=== PATIENT | female | born 2000 | race Caucasian/White ===

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

== ENCOUNTER → 2022-02-27 15:43 | Outpatient (CLI) | payer OTHER, SELFPAY ==
--- NOTE | 2022-02-27 15:49 | XR_ITS ---
FINAL REPORT CLINICAL HISTORY: COUGH, congestion since last friday. very hoarse sounding. Double shielded. FINDINGS: Two views of the chest were obtained. The heart size and pulmonary vascularity are within normal limits. The mediastinum is normal. No acute pulmonary abnormality is identified. There is no pneumothorax. The bony thorax is intact. IMPRESSION: No active cardiopulmonary disease. Reviewed, Interpreted and Dictated by Jeanmarie Abad III, MD Transcribed by Becca Junior Authenticated and [facility]
== END ==
PROVIDERS: PCP Family Medicine; Visit Provider Family Medicine
DX: R05.1 Acute cough (principal)
CPT/HCPCS: 71046

== ENCOUNTER → 2022-03-22 11:13 | Outpatient (CLI) | payer OTHER, SELFPAY ==
[2022-03-22 12:02] LABS: Basophils # 0.1 K/mm3 (0-0.2); Eosinophils # 0.1 K/mm3 (0.0-0.4); Eosinophils % 1.6 % (0.1-12.0); Hematocrit 35.6 % (37.0-47.0); Hemoglobin 13.1 g/dL (12.2-16.2); Lymphocytes # 1.7 K/mm3 (0.7-4.5); Lymphocytes % 27.9 % (10-50); Mean Corpuscular HGB Conc 36.7 g/dL (31.8-35.4); Mean Corpuscular Hemoglobin 32.4 pg (27.0-31.2); Mean Corpuscular Volume 88.2 fl (81-99); Mean Platelet Volume 7.2 fl (7.4-10.4); Monocytes # 0.3 K/mm3 (0.1-1.0); Monocytes % 4.5 % (1.7-9.3); Platelet Count 235 K/mm3 (142-424); Red Blood Count 4.04 M/mm3 (4.20-5.40); Red Cell Distribution Width 13.8 % (11.5-17.5); White Blood Count 6.1 K/mm3 (4.5-13.0)
[2022-03-22 12:28] LABS: Alanine Aminotransferase 13 U/L (12-78); Albumin Level 4.4 g/dl (3.5-5.0); Albumin/Globulin Ratio 1.9 (1.1-1.8); Alkaline Phosphatase 42 U/L (38-126); Amylase 51 U/L (30-110); Aspartate Amino Transferase 18 U/L (14-36); Bilirubin,Total 0.7 mg/dl (0.2-1.3); Blood Urea Nitrogen 8 mg/dl (7-17); Calcium 9.2 mg/dl (8.4-10.2); Carbon Dioxide 22 mmol/L (22.0-30.0); Chloride 111 mmol/L (98-107); Estimated Glomerular Filt Rate 129 ml/min (>60); GFR (African American) 156 ML/MIN (>60); Globulin 2.3 g/dL (1.3-3.2); Glucose 84 mg/dl (74-100); Lipase 40 U/L (23-300); Sodium 141 mmol/L (136-145); Total Protein,Serum 6.7 g/dl (6.3-8.2)
[2022-03-22 12:33] LABS: Anion Gap 11.8 mEq/L (5-15); Potassium 3.8 mmoL/L (3.5-5.1)
[2022-03-22 12:42] LABS: HCG,Quantitative < 2 mIU/ml (0-5.42)
== END ==
PROVIDERS: PCP Nurse Practitioner Family; Visit Provider Nurse Practitioner Family
DX: R42 Dizziness and giddiness (principal); R11.2 Nausea with vomiting, unspecified; R10.30 Lower abdominal pain, unspecified
CPT/HCPCS: 36415; 80053; 82150; 83690; 84443; 84702; 85025

== ENCOUNTER 2022-04-07 17:13 | Emergency (ER) | payer OTHER, SELFPAY ==
[2022-04-07] VITALS (7 sets, daily range): BP systolic 118–143; BP diastolic 79–91; PULSE 56–80; RESP 16; TEMP 36.7–36.8; O2SAT 97–100; BMI 26.2
--- NOTE | 2022-04-07 17:45 | CT_ITS ---
PROCEDURE INFORMATION: Exam: CT Abdomen And Pelvis With Contrast Exam date and time: 04/07/2022 6:13 PM Age: 21 years old Clinical indication: Abdominal pain; Additional info: Right side abd pain TECHNIQUE: Imaging protocol: Computed tomography of the abdomen and pelvis with contrast. Radiation optimization: All CT scans at this facility use at least one of these dose optimization techniques: automated exposure control; mA and/or kV adjustment per patient size (includes targeted exams where dose is matched to clinical indication); or iterative reconstruction. Contrast material: ISOVUE; Contrast volume: 75 ml; Contrast route: IV; Other protocol: This patient has received 0 known CTs and 0 known cardiac nuclear medicine studies in the 12 months prior to the current study. COMPARISON: CR XR CHEST 2V 02/27/2022 3:55 PM FINDINGS: Lungs: Lung bases are unremarkable. Liver: No focal hepatic lesions. Gallbladder and bile ducts: Gallbladder is distended without radiopaque cholelithiasis. No biliary ductal dilation. Pancreas: No peripancreatic fluid stranding. No main pancreatic ductal dilation. Spleen: No splenomegaly. Adrenal glands: The adrenal glands are normal. Kidneys and ureters: Nephrograms are symmetric. No nephrolithiasis or hydroureteronephrosis on either side. No solid lesions Stomach and bowel: No abnormal bowel dilatation. No abnormal bowel wall thickening. Appendix: A normal appendix is identified. Intraperitoneal space: There is no evidence of free intraperitoneal or pelvic fluid. Vasculature: Aorta is nonaneurysmal. Lymph nodes: No evidence of retroperitoneal or mesenteric lymphadenopathy. Urinary bladder: Urinary bladder is unremarkable. Reproductive: Unremarkable as visualized. Bones/joints: No acute osseous abnormality. Soft tissues: Unremarkable. IMPRESSION: No acute abnormality in the abdomen or pelvis
[2022-04-07 17:52] LABS: Microscopic, Urine URINE MICROSCOPIC (MICROSCOPIC)
[2022-04-07 17:55] LABS: Appearance,Urine CLEAR (Clear); Bilirubin,Urine Negative (Negative); Blood, Urine Negative (Negative); Color,Urine YELLOW (Yellow); Glucose,Urine (UA) Negative (Negative); Ketones,Urine Negative (Negative); Leukocyte Esterase,Urine Negative (Negative); Nitrate,Urine Negative (Negative); Protein,Urine Negative (Negative); Specific Gravity, Urine <= 1.005 (1.005-1.030); Urobilinogen,Urine 0.2 EU/dl (0.2)
[2022-04-07 17:57] LABS: Urine Pregnancy, HCG Qual. Negative (Negative)
--- NOTE | 2022-04-07 17:58 | PC.NURSE ---
rounded on pt at this time. no needs voiced
[2022-04-07 17:59] LABS: Chloride 111 mmol/L (98-107)
[2022-04-07 18:00] LABS: Sodium 144 mmol/L (136-145)
[2022-04-07 18:02] LABS: Alanine Aminotransferase 16 U/L (12-78); Albumin Level 4.5 g/dl (3.5-5.0); Albumin/Globulin Ratio 1.7 (1.1-1.8); Alkaline Phosphatase 43 U/L (38-126); Aspartate Amino Transferase 23 U/L (14-36); Bilirubin,Total 0.7 mg/dl (0.2-1.3); Blood Urea Nitrogen 5 mg/dl (7-17); Carbon Dioxide 26 mmol/L (22.0-30.0); Creatinine Clearance Estimated 154 mL/min (50-200); Estimated Glomerular Filt Rate 129 ml/min (>60); GFR (African American) 156 ML/MIN (>60); Globulin 2.7 g/dL (1.3-3.2); Total Protein,Serum 7.2 g/dl (6.3-8.2)
[2022-04-07 18:03] LABS: Calcium 9.4 mg/dl (8.4-10.2); Glucose 101 mg/dl (74-100)
[2022-04-07 18:06] LABS: Squamous Epithelial Cell,Urine Occasional #/hpf (0-5)
[2022-04-07 18:06] LABS: Basophils # 0.1 K/mm3 (0-0.2); Basophils % 1.9 % (0.1-2.0); Eosinophils # 0.2 K/mm3 (0.0-0.4); Eosinophils % 2.8 % (0.1-12.0); Lymphocytes # 2.3 K/mm3 (0.7-4.5); Lymphocytes % 38.1 % (10-50); Mean Corpuscular HGB Conc 33.2 g/dL (31.8-35.4); Mean Corpuscular Hemoglobin 30.1 pg (27.0-31.2); Mean Corpuscular Volume 90.8 fl (81-99); Mean Platelet Volume 7.5 fl (7.4-10.4); Monocytes # 0.3 K/mm3 (0.1-1.0); Monocytes % 5.8 % (1.7-9.3); Neutrophils # 3.1 K/mm3 (1.8-7.8); Neutrophils % 51.5 % (37.0-80.0); Platelet Count 276 K/mm3 (142-424); Red Blood Count 4.63 M/mm3 (4.20-5.40); Red Cell Distribution Width 13.6 % (11.5-17.5); White Blood Count 5.9 K/mm3 (4.5-13.0)
--- NOTE | 2022-04-07 18:12 | PC.NURSE ---
ROUNDED ON PT STATES NO COMPLAINT AT THIS TIME
--- NOTE | 2022-04-07 18:50 | PC.NURSE ---
er at bedside
--- NOTE | 2022-04-07 19:20 | HMH.EDGENADL ---
Discharge Plan Disposition Patient Disposition: Home, Self-Care Condition: Good Prescriptions Prescriptions: New sucralfate [Carafate] 1 gram tablet 1 g PO TID 28 Days Qty: 84 0RF famotidine 20 mg tablet 20 mg PO DAILY Qty: 30 0RF ondansetron 4 mg tablet,disintegrating 4 mg PO TID PRN (Reason: nausea and vomiting) 4 Days Qty: 12 0RF No Action prednisone 5 MG tablets,dose pack 5 mg PO UD DOSE PK Qty: 21 0RF Referrals Follow up/Referrals: Sayra Winters APRN [Primary Care Provider] - See instructions Clinical Impressions Clinical Impression: Gastritis, Nausea & vomiting Instructions Patient Instructions: DI for Acute Abdominal Pain Print Language Print Language: Latvian Discharge ED Provider: Sanjay Gandhi General Adult HPI General Chief complaint: Abdominal Pain Stated complaint: abd pain, vomiting Time Seen by Provider: 04/07/22 19:32 Mode of Arrival: Ambulatory Source of Information: Patient and Parent(s) Limitations: No Limitations Description of Symptoms (Recalled from ER Triage Doc. by RN): pt comes in with c/o right sided pain from flank to groin ongoing for 1 week. pt reports inability to keep food down for 1 week. nausea, no diarrhea associated. pt had recent visit and bloodwork at pcp office and nothing was seen per mother. History of Present Illness HPI narrative: Patient presents to the emergency department with generalized abdominal pain, nausea, vomiting and decreased p.o. intake for the last week. The patient states that she has had no significant constipation or diarrhea. Denies any fever, chills, cough or congestion. Patient denies any dysuria, hematuria or frequency. Denies anything that makes it better or worse Related Data Previous Rx's Medication Instructions Recorded prednisone 5 mg tablets in a dose 5 mg PO UD DOSE PK ##21 12/01/18 pack famotidine 20 mg tablet 20 mg PO DAILY #30 tabs 04/07/22 ondansetron 4 mg disintegrating 4 mg PO TID PRN nausea and 04/07/22 tablet vomiting 4 days #12 tabs sucralfate 1 gram tablet (Carafate) 1 g PO TID 4 weeks #84 tabs 04/07/22 Allergies Allergy/AdvReac Type Severity Reaction Status Date / Time No Known Allergies Allergy Verified 12/01/18 14:46 [facility] Disclaimer: The information contained in this section may have been updated after the patient was seen, as this information can be updated by other users. Social History Smoking Status: Never smoker alcohol intake: never current occupational status: student Travel in the last 8 weeks: None ROS Obtained: Yes All systems reviewed & no additional complaints except as documented Gastrointestinal Gastrointestingal: Reports system reviewed and no additional complaints, except as documented and vomiting Physical Exam General General appearance: alert and in no apparent distress Head Head exam: atraumatic and normocephalic Eye Eye exam: Present normal appearance, PERRL and EOMI Respiratory Respiratory exam: Present normal lung sounds bilaterally Cardiovascular Cardiovascular exam: Present regular rate, normal rhythm and normal heart sounds Abdominal Exam Abdominal exam: Present soft Comment: Nondistended, mild generalized abdominal tenderness with guarding. No rebound. Hyperactive bowel sounds. Neurological Exam Neurological exam: Present alert, oriented X3 and CN II-XII intact Psychiatric Psychiatric exam: Present normal affect and normal mood Skin Skin exam: Present warm, dry and intact Medical Decision Making Medical Records Medical records reviewed: Yes I reviewed the patient's medical records. Miguel Inquiry Pt receiving controlled substance: No Miguel was queried for this patient: No Vital Signs: 04/07/22 17:38 04/07/22 17:28 04/07/22 17:30 Temperature 98.2 F Temperature Source Oral Pulse Rate 56 L 60 Pulse Rate [Left] 62 Respiratory Rate 16 Blood Pressur
== END 2022-04-07 20:02 | disposition home or self-care (01) ==
PROVIDERS: Emergency Provider Emergency Medicine; PCP Nurse Practitioner Family
DX: K52.9 Noninfective gastroenteritis and colitis, unspecified (principal)
CPT/HCPCS: 74177; 80053; 81001; 81025; 85025; 96361; 96374; 96375; 99285; J2405; Q9967

== ENCOUNTER → 2022-04-22 07:46 | Outpatient (CLI) | payer OTHER, SELFPAY ==
--- NOTE | 2022-04-22 07:50 | US_ITS ---
FINAL REPORT CLINICAL HISTORY: N/V,RT SIDED ABD PAIN FINDINGS: Sonographic images of the abdomen were obtained. The liver has an unremarkable appearance with normal echogenicity. The gallbladder has an unremarkable appearance without evidence of gallstones. There is no evidence of biliary ductal dilatation. The common hepatic duct measures 2 mm, which is within normal limits. The pancreas is partially obscured. The spleen size is normal. The right kidney measures 10.7 cm in length. The left kidney measures 11.5 cm in length. There is normal renal echogenicity. There is no evidence of hydronephrosis. The aorta has an unremarkable appearance. Limited images of the inferior vena cava are unremarkable. IMPRESSION: Unremarkable abdominal ultrasound with no acute abnormality identified. Reviewed, Interpreted and Dictated by Jeanmarie Abad III, MD Transcribed by Coby Glass Authenticated and [facility]
== END ==
PROVIDERS: PCP Nurse Practitioner Family; Visit Provider Nurse Practitioner Family
DX: R10.9 Unspecified abdominal pain (principal); R11.2 Nausea with vomiting, unspecified
CPT/HCPCS: 76700

== ENCOUNTER → 2022-04-26 10:11 | Outpatient (CLI) | payer OTHER, SELFPAY ==
--- NOTE | 2022-04-26 10:14 | NM_ITS ---
FINAL REPORT CLINICAL HISTORY: N/V,RT SIDED ABD PAIN no stones on u/s FINDINGS: Sequential anterior projection images of the abdomen were obtained after the intravenous injection of 7.83 mCi technetium 99m Choletec. There is normal uptake of radiotracer by the liver. The bile ducts are visualized by 10 minutes. Gallbladder activity is seen by 10 minutes. Bowel activity is noted by 15 minutes. After 1 hour, 1.3 ?g of CCK was injected intravenously for calculation of gallbladder ejection fraction. The gallbladder ejection fraction is 81 %, which is within normal limits. IMPRESSION: No evidence of cystic duct or bile duct obstruction. Normal gallbladder ejection fraction of 50%. Reviewed, Interpreted and Dictated by Jeanmarie Abad III, MD Transcribed by Janette Roper Authenticated and . [facility]
[2022-04-26 11:06] LABS: Urine Pregnancy, HCG Qual. Negative (Negative)
== END ==
PROVIDERS: Physician Assistant; PCP Nurse Practitioner Family; Visit Provider Nurse Practitioner Family
DX: R10.9 Unspecified abdominal pain (principal); R11.2 Nausea with vomiting, unspecified
CPT/HCPCS: 78227; 81025; A9537; J2805

== ENCOUNTER 2022-10-24 23:21 | Emergency (ER) | payer OTHER, SELFPAY ==
[2022-10-24 23:23] VITALS: BP 131/70; PULSE 120; RESP 20; TEMP 36.6; O2SAT 99; BMI 26.5
[2022-10-25] VITALS (8 sets, daily range): BP systolic 106–138; BP diastolic 56–82; PULSE 90–126; RESP 16–20; TEMP 36.5; O2SAT 96–98
--- NOTE | 2022-10-25 | CT_ITS ---
PROCEDURE INFORMATION: Exam: CTA Head With Contrast, Venography Exam date and time: 10/25/2022 3:02 AM Age: 22 years old Clinical indication: Pain; Patient HX: C/O prolonged headache, nausea, dizziness TECHNIQUE: Imaging protocol: Computed tomography angiography of the head with contrast. Exam focused on the veins. 3D rendering (Not supervised by radiologist): MIP and/or 3D reconstructed images were created by the technologist. Radiation optimization: All CT scans at this facility use at least one of these dose optimization techniques: automated exposure control; mA and/or kV adjustment per patient size (includes targeted exams where dose is matched to clinical indication); or iterative reconstruction. Contrast material: ISOVUE; Contrast volume: 100 ml; Contrast route: INTRAVENOUS (IV); REPORTING DATA: Count of CT and Cardiac NM exams in prior 12 months: This patient has received [address] and 0 known cardiac nuclear medicine studies in the 12 months prior to the current study. COMPARISON: CT HEAD/BRAIN WO CON 10/25/2022 2:59 AM FINDINGS: Superior sagittal sinus: Patent. Straight sinus: Patent. Transverse sinuses: Patent. Sigmoid sinuses: Patent. Internal jugular veins: Limited visualized internal jugular veins are patent. Brain: No hemorrhage. Unremarkable white matter. No mass effect. Cerebral ventricles: No ventriculomegaly. Soft tissues: Unremarkable. IMPRESSION: No venous thrombosis.
--- NOTE | 2022-10-25 | XR_ITS ---
PROCEDURE INFORMATION: Exam: XR Chest Exam date and time: 10/25/2022 3:00 AM Age: 22 years old Clinical indication: Sternal or substernal pain; Additional info: Chest pain TECHNIQUE: Imaging protocol: Radiologic exam of the chest. Views: 1 view. COMPARISON: CR XR CHEST 2V 02/27/2022 3:55 PM FINDINGS: Lungs: Unremarkable. No consolidation. Pleural spaces: Unremarkable. No pleural effusion. No pneumothorax. Heart/Mediastinum: Unremarkable. No cardiomegaly. Bones/joints: Unremarkable. IMPRESSION: No acute cardiopulmonary process.
--- NOTE | 2022-10-25 | CT_ITS ---
PROCEDURE INFORMATION: Exam: CT Head Without Contrast Exam date and time: 10/25/2022 2:59 AM Age: 22 years old Clinical indication: Pain; Dizziness; Headache; Additional info: Prolonged headache TECHNIQUE: Imaging protocol: Computed tomography of the head without contrast. Radiation optimization: All CT scans at this facility use at least one of these dose optimization techniques: automated exposure control; mA and/or kV adjustment per patient size (includes targeted exams where dose is matched to clinical indication); or iterative reconstruction. REPORTING DATA: Count of CT and Cardiac NM exams in prior 12 months: This patient has received [address] and 0 known cardiac nuclear medicine studies in the 12 months prior to the current study. COMPARISON: No relevant prior studies available. FINDINGS: Brain: Normal. No hemorrhage. Unremarkable white matter. No mass effect. Cerebral ventricles: No ventriculomegaly. Paranasal sinuses: Visualized sinuses are unremarkable. No fluid levels. Mastoid air cells: Visualized mastoid air cells are well aerated. Bones/joints: Unremarkable. No acute fracture. Soft tissues: Unremarkable. IMPRESSION: No acute intracranial process.
[2022-10-25 00:08] LABS: Basophils % 0.2 % (0.1-2.0); Eosinophils # 0.1 K/mm3 (0.0-0.4); Eosinophils % 0.6 % (0.1-12.0); Hematocrit 41.6 % (37.0-47.0); Hemoglobin 13.9 g/dL (12.2-16.2); Lymphocytes # 1.2 K/mm3 (0.7-4.5); Lymphocytes % 7.4 % (10-50); Mean Corpuscular HGB Conc 33.5 g/dL (31.8-35.4); Mean Corpuscular Volume 89.8 fl (81-99); Mean Platelet Volume 6.9 fl (7.4-10.4); Monocytes # 0.8 K/mm3 (0.1-1.0); Neutrophils # 14.2 K/mm3 (1.8-7.8); Neutrophils % 86.8 % (37.0-80.0); Platelet Count 243 K/mm3 (142-424); Red Blood Count 4.63 M/mm3 (4.20-5.40); Red Cell Distribution Width 13.1 % (11.5-17.5); White Blood Count 16.4 K/mm3 (4.5-13.0)
[2022-10-25 00:10] LABS: Chloride 106 mmol/L (98-107); Potassium 3.8 mmoL/L (3.5-5.1); Sodium 143 mmol/L (136-145)
[2022-10-25 00:12] LABS: Alanine Aminotransferase 23 U/L (12-78); Alkaline Phosphatase 66 U/L (38-126); Aspartate Amino Transferase 28 U/L (14-36); Bilirubin,Total 0.7 mg/dl (0.2-1.3); Blood Urea Nitrogen 8 mg/dl (7-17); Creatinine Clearance Estimated 138 mL/min (50-200); Estimated Glomerular Filt Rate 107 ml/min (>60); GFR (African American) 129 ML/MIN (>60); MANUAL DIFFERENTIAL MANUAL DIFFERENTIAL (MANUAL DIFF)
[2022-10-25 00:13] LABS: Albumin Level 4.4 g/dl (3.5-5.0); Albumin/Globulin Ratio 1.5 (1.1-1.8); Anion Gap 13.8 mEq/L (5-15); Carbon Dioxide 27 mmol/L (22.0-30.0); Glucose 99 mg/dl (74-100); Lipase 46 U/L (23-300); Total Protein,Serum 7.4 g/dl (6.3-8.2)
[2022-10-25 00:18] LABS: Microscopic, Urine URINE MICROSCOPIC (MICROSCOPIC)
[2022-10-25 00:21] LABS: Appearance,Urine CLEAR (Clear); Bilirubin,Urine Negative (Negative); Blood, Urine Negative (Negative); Color,Urine YELLOW (Yellow); Glucose,Urine (UA) Negative (Negative); Ketones,Urine Negative (Negative); Leukocyte Esterase,Urine Negative (Negative); Nitrate,Urine Negative (Negative); PH,Urine 7.5 (5.0-8.5); Protein,Urine Negative (Negative); Urobilinogen,Urine 0.2 EU/dl (0.2)
--- NOTE | 2022-10-25 00:21 | HMH.EDGENADL ---
Discharge Plan Disposition Patient Disposition: Home, Self-Care Condition: Good Prescriptions Prescriptions: No Action No Known Home Medications Referrals Follow up/Referrals: Provider,Referral, [Primary Care Provider] - See instructions Activity Restrictions/Add. Instructions Additional Instructions/Restrictions: Please follow-up with your primary care provider. Please return to the emergency department if you develop any new or worsening symptoms or become concerned for your health. Clinical Impressions Clinical Impression: Nausea Headache Qualifiers: Headache type: unspecified Headache chronicity pattern: acute headache Intractability: intractable Qualified Code(s): R51.9 - Headache, unspecified Chest pain Qualifiers: Chest pain type: unspecified Qualified Code(s): R07.9 - Chest pain, unspecified Stand Alone Forms Stand Alone Forms: Work/School Release Discharge ED Provider: Alvarado Long Adult HPI General Chief complaint: Headache Stated complaint: headache, neck pain, dizziness Time Seen by Provider: 10/24/22 23:25 Mode of Arrival: Ambulatory Source of Information: Patient Limitations: No Limitations Description of Symptoms (Recalled from ER Triage Doc. by RN): Pt presents with a headache she has had for 1 week, associated with nausea, dizziness, fatigue, sore throat and right eye visual changes worse when waking up. History of Present Illness HPI narrative: 22-year-old female history of chronic headaches presents with multiple complaints. She reports that she has had a headache starting last Friday, approximately 1 week in duration. Normally her headaches do not last this long and usually respond to ibuprofen or Tylenol. She reports her headache is at worst a 7 or 8, is currently a 4. It is never gone away completely. It is largely posterior in nature. She reports intermittent vision changes. Earlier today under around 6 PM she noted some blurry vision in her right eye. Then she had blurry vision in both eyes. It has since improved. She reports no tinnitus. She has been continuing to go to school. She has had no weakness dizziness or difficulty ambulation. She reports that she gets nauseous with moving around she reports chest pain starting earlier today as well as back pain and neck pain. She reports fatigue and sore throat as well. She reports that she has had intermittent fever for the last few days. Related Data Home Medications Medication Instructions Recorded Confirmed No Known Home Medications 10/25/22 10/25/22 Allergies Allergy/AdvReac Type Severity Reaction Status Date / Time No Known Allergies Allergy Verified 09/25/22 09:28 [facility] Disclaimer: The information contained in this section may have been updated after the patient was seen, as this information can be updated by other users. 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 (Updated 10/25/22 @ 04:08 by Alvarado Long MD) Chronic streptococcal tonsillitis Epistaxis Social History Smoking Status: Never smoker alcohol intake: never current occupational status: student Travel in the last 8 weeks: None ROS Obtained: Yes All systems reviewed & no additional complaints except as documented Physical Exam General General appearance: alert and anxious Head Head exam: atraumatic and normocephalic Eye Eye exam: Present normal appearance, PERRL and EOMI; Absent jaundice, conjunctival injection or nystagmus ENT ENT exam: Present normal external ear exam and other (Mild posterior oropharyngeal erythema without tonsillar swelling) Neck Neck exam: Present normal inspection, full ROM and other (Mild paraspinal tenderness to palpation); Absent meningismus Chest Chest inspection: Present normal inspection and symmetric chest wall rise; Absent tenderness Respiratory Respiratory exam: Present normal lung sounds bilaterally; Absent respiratory distress or wheeze
[2022-10-25 00:22] LABS: HCG Qualitative, Serum Negative (Negative); Lymphocytes % 11 % (10-50); Monocytes % 4 % (2-9); Neutrophils % 85 % (42-76); Platelet Estimate Normal; RBC Morphology Normal; Total Cells Counted 100
[2022-10-25 00:25] LABS: Squamous Epithelial Cell,Urine Occasional #/hpf (0-5)
--- NOTE | 2022-10-25 00:26 | ECG_ITS ---
APPROVED REPORT Exam: Resting ECG HR:106 bpm ECG Measurements Heart Rate [address] 122 P 45 QRSd 86 QRS 86 QT 323 T 81 QTc 385 Conclusion SINUS TACHYCARDIA ABNORMAL RHYTHM ECG UNCONFIRMED REPORT Electronically signed by : Mynor Pang MD 10/25/2022 07:21:11
[2022-10-25 00:44] LABS: Thyroid Stimulating Hormone 1.17 uIU/mL (0.465-4.68)
[2022-10-25 02:21] LABS: Adenovirus,PCR Not Detected (NotDetected); Bordetella Pertussis Not Detected (NotDetected); Chlamydophila Pneumoniae, PCR Not Detected (NotDetected); Coronavirus 19, PCR Not Detected (NotDetected); Coronavirus 229E Not Detected (NotDetected); Coronavirus NL63 Not Detected (NotDetected); Coronavirus OC43 Not Detected (NotDetected); Coronovirus HKU1,PCR Not Detected (NotDetected); Human Metapneumovirus Not Detected (NotDetected); Influenza A, PCR Not Detected (NotDetected); Influenza AH1, 2009 Not Detected (NotDetected); Influenza AH1, PCR Not Detected (NotDetected); Influenza AH3,PCR Not Detected (NotDetected); Influenza B, PCR Not Detected (NotDetected); Mycoplasma Pneumoniae, PCR Not Detected (NotDetected); Parainfluenza 1, PCR Not Detected (NotDetected); Parainfluenza 2, PCR Not Detected (NotDetected); Parainfluenza 3, PCR Not Detected (NotDetected); Parainfluenza 4, PCR Not Detected (NotDetected); Respiratory Syncytial Virus Not Detected (NotDetected); Rhinovirus/Enterovirus Not Detected (NotDetected)
[2022-10-25 02:38] LABS: D-Dimer < 0.25 ug/mL (0.0-0.5)
[2022-10-25 03:52] LABS: Monoscreen (Rapid) Negative (Negative)
[2022-10-25 03:57] LABS: Strep Scrn Group A (Rapid) Negative (Negative)
== END 2022-10-25 04:16 | disposition home or self-care (01) ==
PROVIDERS: Emergency Provider Emergency Medicine
DX: R07.9 Chest pain, unspecified (principal); R51.9 Headache, unspecified; R11.0 Nausea; R00.0 Tachycardia, unspecified
CPT/HCPCS: 70450; 70496; 71045; 80053; 81001; 83690; 84443; 84703; 85007; 85025; 85378; 86318; 87430; 87581; 87632; 87636; 87798; 93005; 96361; 96374; 96375; 99285; J1790; J3475; Q9967

== ENCOUNTER 2023-01-04 19:43 | Emergency (ER) | payer OTHER, SELFPAY ==
[2023-01-04 19:50] VITALS: BP 130/80; PULSE 65; RESP 22; TEMP 36.5; O2SAT 98; BMI 28.0
--- NOTE | 2023-01-04 19:58 | EXP.UTC ---
Discharge Plan Disposition Patient Disposition: Home, Self-Care Condition: Good Prescriptions Prescriptions: New amoxicillin [amoxicillin] 500 mg tablet 500 mg PO TID 10 Days Qty: 30 0RF rhlrgywfcmjpmak-rxrbrqjsm-UB [Bromfed DM] 2-30-10 mg/5 mL Syrup 5 ml PO Q6H PRN (Reason: Cough) Qty: 240 0RF prednisone 10 mg tablet 10 mg PO BID 3 Days Qty: 6 0RF No Action sertraline 25 mg tablet 25 mg PO DAILY Patient Comments: TAKE 1 TABLET BY MOUTH EVERY DAY Referrals Follow up/Referrals: Efra James MD [Primary Care Provider] - See instructions Activity Restrictions/Add. Instructions Additional Instructions/Restrictions: Drink plenty of fluids. Take tylenol or ibuprofen for pain or fever. Take the medications as directed. Follow up with your regular doctor. GO TO THE ER FOR ANY WORSENING SYMPTOMS Clinical Impressions Clinical Impression: Pharyngitis, Otitis media Stand Alone Forms Stand Alone Forms: Work/School Release Instructions Patient Instructions: Sore Throat, DI for Strep Throat Discharge ED Provider: Amrit Meade [facility] General Stated complaint: sore throat Time Seen by Provider: 01/04/23 19:57 History of Present Illness Provider Complaint: She states that for the past 2 days she has had sore throat, chills, body aches. Related Data Home Medications Medication Instructions Recorded Confirmed sertraline 25 mg tablet 25 mg PO DAILY 01/04/23 01/04/23 Previous Rx's Medication Instructions Recorded amoxicillin 500 mg tablet 500 mg PO TID 10 days #30 tabs 01/04/23 zaqnwbezxswxptu-psrmzattecgvgxd-LQ 5 ml PO Q6H PRN Cough #240 mL 01/04/23 2 mg-30 mg-10 mg/5 mL oral syrup (Bromfed DM) prednisone 10 mg tablet 10 mg PO BID 3 days #6 tabs 01/04/23 Allergies Allergy/AdvReac Type Severity Reaction Status Date / Time No Known Allergies Allergy Verified 09/25/22 09:28 [facility] Disclaimer: The information contained in this section may have been updated after the patient was seen, as this information can be updated by other users. 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 (Updated 01/04/23 @ 20:09 by Amrit Meade APRN) Chronic streptococcal tonsillitis Epistaxis Social History Smoking Status: Never smoker alcohol intake: never current occupational status: student Travel in the last 8 weeks: None ROS Obtained: Yes All systems reviewed & no additional complaints except as documented Constitutional Constitutional: Reports chills and Reports fever(s) Eyes Eyes: Denies eye discharge ENT Ears, Nose, Mouth, and Throat: Reports as per HPI Cardiovascular Cardiovascular: Denies chest pain Respiratory Respiratory: Denies chest congestion and Reports cough Gastrointestinal Gastrointestingal: Reports nausea; Denies abdominal pain, constipation, cramping, diarrhea or vomiting Musculoskeletal Musculoskeletal: Denies arthralgias Integumentary/Breasts Skin/Breast: Denies rash Neurologic Neurologic: Denies paresthesias Physical Exam General General appearance: alert and in no apparent distress Head Head exam: atraumatic, normocephalic and normal inspection Eye Eye exam: Present normal appearance, PERRL and EOMI ENT ENT exam: Present mucous membranes moist and normal external ear exam Expanded ENT Exam TM/Canal exam: Bilateral TM: erythema and bulging Nose exam: Absent sinus tenderness Mouth exam: Present normal external inspection; Absent drooling Teeth exam: Present normal inspection Throat exam: Present tonsillar erythema, tonsillomegaly and tonsillar exudate Neck Neck exam: Present normal inspection, full ROM and trachea midline; Absent tenderness, meningismus or lymphadenopathy Chest Chest inspection: Present normal inspection and symmetric chest wall rise; Absent tenderness Respiratory Respiratory exam: Present normal lung sounds bilaterally; Absent respiratory distress, wheezes, stridor or accessory
[2023-01-04 20:02] LABS: UTC Strep Screen (Rapid) Negative (Negative)
[2023-01-04 20:09] VITALS: BP 130/80; PULSE 65; RESP 22; TEMP 36.6; O2SAT 98
== END 2023-01-04 20:12 | disposition home or self-care (01) ==
PROVIDERS: Emergency Provider Nurse Practitioner Family; PCP Family Medicine
DX: J02.9 Acute pharyngitis, unspecified (principal); H66.93 Otitis media, unspecified, bilateral; R50.9 Fever, unspecified; R05.9 Cough, unspecified; R11.0 Nausea
CPT/HCPCS: 87880; 99204; 99212; G0463

== ENCOUNTER 2023-01-29 16:02 | Emergency (ER) | payer OTHER, SELFPAY ==
[2023-01-29 17:40] VITALS: BP 130/71; PULSE 95; RESP 19; TEMP 37.1; O2SAT 99; BMI 28.0
[2023-01-29 17:57] LABS: UTC Strep Screen (Rapid) Negative (Negative)
--- NOTE | 2023-01-29 18:06 | EXP.UTC ---
Discharge Plan Disposition Patient Disposition: Home, Self-Care Condition: Good Prescriptions Prescriptions: New azithromycin [azithromycin] 250 mg tablet 250 mg PO DIRECTED Qty: 6 0RF Rx Instructions: Take two (2) tablets on day #1, then one (1) tablet day #2 thru #5 No Action norgestimate-ethinyl estradiol [Tri-Lo-Kanwal] 0.18/0.215/0.25 mg-25 mcg tablet 1 tab PO DAILY Patient Comments: TAKE 1 TABLET BY MOUTH EVERY DAY sertraline 25 mg tablet 25 mg PO DAILY Patient Comments: TAKE 1 TABLET BY MOUTH EVERY DAY Referrals Follow up/Referrals: Efra James MD [Primary Care Provider] - See instructions Activity Restrictions/Add. Instructions Additional Instructions/Restrictions: Start antibiotics today be sure to take it as ordered with the full length of time although you should start feeling better in 24-48 hours. Change toothbrush and toothpaste 24-48 hours after starting antibiotics Tylenol or Motrin as needed for fever or pain Encourage fluids, water, Gatorade, Powerade, try cold fluids, popsicles, ice cream will make it feel better You are contagious for 24 hours. Avoid kissing anyone, no eating or drinking after anyone. You are contagious. Follow-up the ER for new or worsening symptoms or no noticeable improvement over the next 24-48 hours. Follow-up with PCP this week. Clinical Impressions Clinical Impression: Strep sore throat Stand Alone Forms Stand Alone Forms: Work/School Release Instructions Patient Instructions: DI for Strep Throat Discharge ED Provider: Dejuan ([facility])Justin [facility] HPI General Stated complaint: sore throat, tasting blood Mode of Arrival: Ambulatory Source of Information: Patient Limitations: No Limitations Time Seen by Provider: 01/29/23 18:06 Description of Symptoms (Recalled from Triage Doc. by RN): sore throat, taste of blood when swallowing, and ear ache HEENT Symptoms (Recalled from RN notes): Yes Resp Symptoms (Recalled from RN notes): No Skin Symptoms (Recalled from RN notes): No MS Symptoms (Recalled from RN notes): No Functional Status (Recalled from RN notes): n/a History of Present Illness Provider Complaint: 22 yr old female presents for sore throat, taste of blood when swallowing, hoarseness and ear ache Related Data Home Medications Medication Instructions Recorded Confirmed sertraline 25 mg tablet 25 mg PO DAILY 01/04/23 01/29/23 norgestimate 0.18 mg/0.215 mg/0.25 1 tab PO DAILY 01/29/23 01/29/23 mg-ethinyl estradiol 25 mcg tablet (Tri-Lo-Kanwal) Previous Rx's Medication Instructions Recorded azithromycin 250 mg tablet 250 mg PO DIRECTED #6 tabs 01/29/23 Allergies Allergy/AdvReac Type Severity Reaction Status Date / Time No Known Allergies Allergy Verified 01/29/23 18:05 Worker's Comp Is this a Worker's Comp case?: No [facility] Disclaimer: The information contained in this section may have been updated after the patient was seen, as this information can be updated by other users. 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) Smoking Status: Never smoker alcohol intake: never current occupational status: student Travel in the last 8 weeks: None ROS Obtained: Yes All systems reviewed & no additional complaints except as documented Constitutional Constitutional: Reports system reviewed and no additional complaints, except as documented and Reports as per HPI Eyes Eyes: Reports system reviewed and no additional complaints, except as documented ENT Ears, Nose, Mouth, and Throat: Reports system reviewed and no additional complaints, except as documented, Reports as per HPI, Reports otalgia, Reports hoarseness and Reports sore throat Cardiovascular Cardiovascular: Reports system reviewed and no additional complaints, except as documente
[2023-01-29 18:25] VITALS: BP 130/71; PULSE 95; RESP 18; TEMP 37.1; O2SAT 99
== END 2023-01-29 18:25 | disposition home or self-care (01) ==
PROVIDERS: Emergency Provider Nurse Practitioner Family; PCP Family Medicine
DX: J02.0 Streptococcal pharyngitis (principal); R07.0 Pain in throat; J04.0 Acute laryngitis; H92.09 Otalgia, unspecified ear
CPT/HCPCS: 87880; 99212; 99214; G0463

== ENCOUNTER 2023-02-06 15:27 | Emergency (ER) | payer OTHER, SELFPAY ==
--- NOTE | 2023-02-06 15:35 | EXP.UTC ---
Discharge Plan Disposition Patient Disposition: Home, Self-Care Condition: Good Prescriptions Prescriptions: New azithromycin [Zithromax] 250 mg tablet 250 mg PO UD DOSE PK Qty: 6 0RF Rx Instructions: Take two (2) tablets today, then one (1) tablet days #2 thru #5 [id number]-[id number] [Bromfed DM] 2-30-10 mg/5 mL Syrup 5 ml PO Q6H PRN (Reason: Cough) Qty: 240 0RF methylprednisolone 4 mg Tablets,Dose Pack 4 mg PO DIRECTED Qty: 21 0RF No Action norgestimate-ethinyl estradiol [Tri-Lo-Kanwal] 0.18/0.215/0.25 mg-25 mcg tablet 1 tab PO DAILY Patient Comments: TAKE 1 TABLET BY MOUTH EVERY DAY sertraline 25 mg tablet 25 mg PO DAILY Patient Comments: TAKE 1 TABLET BY MOUTH EVERY DAY Referrals Follow up/Referrals: Efra James MD [Primary Care Provider] - See instructions Activity Restrictions/Add. Instructions Additional Instructions/Restrictions: Drink plenty of fluids. Take tylenol or ibuprofen for pain or fever. Take the medications as directed. Follow up with your regular doctor. GO TO THE ER FOR ANY WORSENING SYMPTOMS Clinical Impressions Clinical Impression: Sinusitis, Acute viral syndrome Stand Alone Forms Stand Alone Forms: Work/School Release Instructions Patient Instructions: DI for Sinusitis, DI for Viral Syndrome Discharge ED Provider: Amrit Meade [facility] General Stated complaint: headache, cough Time Seen by Provider: 02/06/23 15:35 History of Present Illness Provider Complaint: She states that for the past 2 days she has had sinus congestion, headache and malaise. Related Data Home Medications Medication Instructions Recorded Confirmed sertraline 25 mg tablet 25 mg PO DAILY 01/04/23 02/06/23 norgestimate 0.18 mg/0.215 mg/0.25 1 tab PO DAILY 01/29/23 02/06/23 mg-ethinyl estradiol 25 mcg tablet (Tri-Lo-Kanwal) Previous Rx's Medication Instructions Recorded azithromycin 250 mg tablet 250 mg PO UD DOSE PK #6 tabs 02/06/23 (Zithromax) [id number]-dfsbmnldgtkjnff-NL 5 ml PO Q6H PRN Cough #240 mL 02/06/23 2 mg-30 mg-10 mg/5 mL oral syrup (Bromfed DM) methylprednisolone 4 mg tablets in 4 mg PO DIRECTED #21 tabs 02/06/23 a dose pack Allergies Allergy/AdvReac Type Severity Reaction Status Date / Time No Known Allergies Allergy Verified 01/29/23 18:05 [facility] Disclaimer: The information contained in this section may have been updated after the patient was seen, as this information can be updated by other users. 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) Smoking Status: Never smoker alcohol intake: never current occupational status: student Travel in the last 8 weeks: None ROS Obtained: Yes All systems reviewed & no additional complaints except as documented Constitutional Constitutional: Reports poor appetite Eyes Eyes: Reports system reviewed and no additional complaints, except as documented ENT Ears, Nose, Mouth, and Throat: Reports as per HPI Cardiovascular Cardiovascular: Reports system reviewed and no additional complaints, except as documented and Denies chest pain Respiratory Respiratory: Denies shortness of breath, Denies chest congestion, Reports cough, Denies stridor and Denies wheezing Gastrointestinal Gastrointestingal: Reports system reviewed and no additional complaints, except as documented; Denies abdominal pain, diarrhea or vomiting Musculoskeletal Musculoskeletal: Reports system reviewed and no additional complaints, except as documented and Denies arthralgias Integumentary/Breasts Skin/Breast: Reports system reviewed and no additional complaints, except as documented and Denies rash Neurologic Neurologic: Denies paresthesias Allergic/Immunologic Allergic/Immunologic: Denies wheezing Physical Exam
[2023-02-06 15:40] VITALS: BP 128/74; PULSE 80; RESP 20; TEMP 36.7; O2SAT 98; BMI 28.3
[2023-02-06 15:50] VITALS: BP 128/74; PULSE 80; RESP 20; TEMP 36.7; O2SAT 98
[2023-02-06 16:36] LABS: UTC Influenza A Antigen Negative (Negative); UTC Strep Screen (Rapid) Negative (Negative)
[2023-02-06 16:37] LABS: UTC Influenza B Antigen Negative (Negative)
== END 2023-02-06 16:52 | disposition home or self-care (01) ==
PROVIDERS: Emergency Provider Nurse Practitioner Family; PCP Family Medicine
DX: J01.90 Acute sinusitis, unspecified (principal); R51.9 Headache, unspecified; R05.9 Cough, unspecified; R09.81 Nasal congestion; R53.81 Other malaise
CPT/HCPCS: 87635; 87804; 87880; 99212; 99214; G0463

== ENCOUNTER 2023-02-27 19:08 | Emergency (ER) | payer OTHER, SELFPAY ==
[2023-02-27 20:10] VITALS: BP 139/81; PULSE 80; RESP 20; TEMP 37.3; O2SAT 98; BMI 28.3
--- NOTE | 2023-02-27 20:24 | EXP.UTC ---
Discharge Plan Disposition Patient Disposition: Home, Self-Care Condition: Good Prescriptions Prescriptions: New amoxicillin 875 mg tablet 875 mg PO Q12H Qty: 20 0RF pseudoephedrine HCl [Sudafed 12 Hour] 120 mg tablet extended release 120 mg PO Q12H PRN (Reason: nasal congestion) Qty: 20 0RF No Action norgestimate-ethinyl estradiol [Tri-Lo-Kanwal] 0.18/0.215/0.25 mg-25 mcg tablet 1 tab PO DAILY Patient Comments: TAKE 1 TABLET BY MOUTH EVERY DAY sertraline 25 mg tablet 25 mg PO DAILY Patient Comments: TAKE 1 TABLET BY MOUTH EVERY DAY Referrals Follow up/Referrals: Efra James MD [Primary Care Provider] - See instructions Activity Restrictions/Add. Instructions Additional Instructions/Restrictions: *Monitor Temp, Over the counter Motrin or Tylenol as directed/as needed Tylenol every 4 hours and Motrin every 6 hours (as long as your family doctor has told you that you can take it) for fever or pain. and straight to ER if unable to lower temp less than 101.0 after medication given *Warm salt water gargles may help to soothe the throat *Throat Lozenges? *Warm fluids like tea with honey may help to soothe the throat? *Sleep elevated *Humidifier/Vaporizer Take medication as prescribed Your throat swab was sent for culture. Those results are typically sent to your primary care. Be sure to follow up in 2-3 days with your family doctor/primary care physician if no improvement so they can review those result and treat if necessary. If you don?t have a primary care doctor, I recommend you get one but in the mean time, you will have to return to a walk in clinic Follow up IMMEDIATELY for new or worsening symptoms or no Noticeable improvement over the next 48-72 hours. 911 for difficulty breathing or swallowing Clinical Impressions Clinical Impression: Otitis media Qualifiers: Otitis media type: unspecified Laterality: bilateral Qualified Code(s): H66.93 - Otitis media, unspecified, bilateral Instructions Patient Instructions: Middle Ear Infection, Sore Throat Discharge ED Provider: Iraida Brice [facility] General Stated complaint: Ear aching and painful Mode of Arrival: Ambulatory Source of Information: Patient Limitations: No Limitations Time Seen by Provider: 02/27/23 20:24 Description of Symptoms (Recalled from Triage Doc. by RN): PATIENT C/O BILATERAL EAR ACHE X 2 DAYS AND SORE THROAT THAT STARTED TODAY HEENT Symptoms (Recalled from RN notes): Yes Resp Symptoms (Recalled from RN notes): No Skin Symptoms (Recalled from RN notes): No MS Symptoms (Recalled from RN notes): No Functional Status (Recalled from RN notes): WNL History of Present Illness Provider Complaint: Patient states that she has been having bilateral ear pain and pressure and for the last couple days she has been having sore throat States that today her ears and throat was hurting worse so she came in to get checked Related Data Home Medications Medication Instructions Recorded Confirmed sertraline 25 mg tablet 25 mg PO DAILY 01/04/23 02/27/23 norgestimate 0.18 mg/0.215 mg/0.25 1 tab PO DAILY 01/29/23 02/27/23 mg-ethinyl estradiol 25 mcg tablet (Tri-Lo-Kanwal) Previous Rx's Medication Instructions Recorded amoxicillin 875 mg tablet 875 mg PO Q12H #20 tabs 02/27/23 pseudoephedrine HCl 120 mg 120 mg PO Q12H PRN nasal 02/27/23 tablet,extended release (Sudafed congestion #20 tabs 12 Hour) Allergies Allergy/AdvReac Type Severity Reaction Status Date / Time No Known Allergies Allergy Verified 01/29/23 18:05 Worker's Comp Is this a Worker's Comp case?: No [facility] Disclaimer: The information contained in this section may have been updated after the patient was seen, as this information can be updated by other users. 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) Smoking Status: Never smoker alcohol intake: never current occupational status: student Travel in the last 8 weeks: None ROS Obtained: Yes All systems reviewed & no additional complaints except as documented and Yes Systems reviewed as appropriate & no additional complaints except as documented Constitutional Constitutional: Reports system reviewed and no additional complaints, except as documented and Reports as per HPI ENT Ears, Nose, Mouth, and Throat: Reports system reviewed and no additional complaints, except as documented, Reports as per HPI, Reports otalgia and Reports sore throat Cardiovascular Cardiovascular: Reports system reviewed and no additional complaints, except as documented and Reports as per HPI Respiratory Respiratory: Reports system reviewed and no additional complaints, except as documented and Reports as per HPI Gastrointestinal Gastrointestingal: Reports system reviewed and no additional complaints, except as documented and as per HPI Genitourinary Female Genitourinary: Reports system reviewed and no additional complaints, except as documented and Reports as per HPI Musculoskeletal Musculoskeletal: Reports system reviewed and no additional complaints, except as documented and Reports as per HPI Physical Exam General General appearance: alert and in no apparent distress ENT ENT exam: Present mucous membranes moist Expanded ENT Exam TM/Canal exam: Bilateral TM: erythema and bulging Nose exam: Absent sinus tenderness Throat exam: Present tonsillar erythema Respiratory Respiratory exam: Present normal lung sounds bilaterally; Absent respiratory distress or wheezes Cardiovascular Cardiovascular exam: Present regular rate, normal rhythm and normal heart sounds Abdominal Exam Abdominal exam: Present soft and normal bowel sounds; Absent distention or tenderness Neurological Exam Neurological exam: Present alert, oriented X3 and normal gait Medical Decision Making Miguel Inquiry Pt receiving controlled substance: No Miguel was queried for this patient: No Vital Signs: 02/27/23 20:10 Temperature 99.1 F Temperature Source Oral Pulse Rate [Left Brachial] 80 Respiratory Rate 20 Blood Pressure [Left Arm] 139/81 Blood Pressure Mean [Left Arm] 100 Blood Pressure Source [Left Arm] Automatic Cuff Blood Pressure Position [Left Arm] Sitting 02 Sat by Pulse Oximetry 98 Oxygen Delivery Method Room Air Lab Data Lab results reviewed: Yes I reviewed the patient's lab results.
[2023-02-27 20:25] LABS: UTC Strep Screen (Rapid) Negative (Negative)
[2023-02-27 20:31] VITALS: BP 139/81; PULSE 80; RESP 20; TEMP 37.3; O2SAT 98
== END 2023-02-27 20:40 | disposition home or self-care (01) ==
PROVIDERS: Emergency Provider Nurse Practitioner; PCP Family Medicine
DX: H66.93 Otitis media, unspecified, bilateral (principal); J02.9 Acute pharyngitis, unspecified
CPT/HCPCS: 87880; 99212; 99214; G0463

== ENCOUNTER 2023-03-24 09:11 | Emergency (ER) | payer OTHER, SELFPAY ==
[2023-03-24 09:40] VITALS: BP 135/69; PULSE 105; RESP 18; TEMP 36.8; O2SAT 97; BMI 28.6
--- NOTE | 2023-03-24 09:49 | ED_ITS ---
Discharge Plan Disposition Patient Disposition: Home, Self-Care Condition: Good Prescriptions Prescriptions: New azithromycin [Zithromax] 250 mg tablet 250 mg PO UD DOSE PK Qty: 6 0RF Rx Instructions: Take two (2) tablets today, then one (1) tablet days #2 thru #5 [id number]-flxmxxqid-IM [Bromfed DM] 2-30-10 mg/5 mL Syrup 5 ml PO Q6H PRN (Reason: Cough) Qty: 240 0RF ondansetron 4 mg Tablet,Disintegrating 4 mg PO Q8H PRN (Reason: Nausea) Qty: 12 0RF No Action norgestimate-ethinyl estradiol [Tri-Lo-Kanwal] 0.18/0.215/0.25 mg-25 mcg tablet 1 tab PO DAILY Patient Comments: TAKE 1 TABLET BY MOUTH EVERY DAY sertraline 25 mg tablet 25 mg PO DAILY Patient Comments: TAKE 1 TABLET BY MOUTH EVERY DAY Referrals Follow up/Referrals: Efra James MD [Primary Care Provider] - See instructions Activity Restrictions/Add. Instructions Additional Instructions/Restrictions: Drink plenty of fluids. Take tylenol or ibuprofen for pain or fever. Take the medications as directed. Follow up with your regular doctor. GO TO THE ER FOR ANY WORSENING SYMPTOMS Clinical Impressions Clinical Impression: Acute viral syndrome, Bronchitis Stand Alone Forms Stand Alone Forms: Work/School Release Instructions Patient Instructions: DI for Sinusitis, DI for Viral Syndrome Discharge ED Provider: Amrit Meade [facility] General Stated complaint: fever,cough, bodyaches Time Seen by Provider: 03/24/23 09:44 History of Present Illness Provider Complaint: She states that for the past 2 days she had fever, chills, and malaise. Related Data Home Medications Medication Instructions Recorded Confirmed sertraline 25 mg tablet 25 mg PO DAILY 01/04/23 03/24/23 norgestimate 0.18 mg/0.215 mg/0.25 1 tab PO DAILY 01/29/23 03/24/23 mg-ethinyl estradiol 25 mcg tablet (Tri-Lo-Kanwal) Previous Rx's Medication Instructions Recorded azithromycin 250 mg tablet 250 mg PO UD DOSE PK #6 tabs 03/24/23 (Zithromax) [id number]-miojreaungoxefb-TZ 5 ml PO Q6H PRN Cough #240 mL 03/24/23 2 mg-30 mg-10 mg/5 mL oral syrup (Bromfed DM) ondansetron 4 mg disintegrating 4 mg PO Q8H PRN Nausea #12 tabs 03/24/23 tablet Allergies Allergy/AdvReac Type Severity Reaction Status Date / Time No Known Allergies Allergy Verified 03/24/23 09:52 [facility] Disclaimer: The information contained in this section may have been updated after the patient was seen, as this information can be updated by other users. 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) Chronic streptococcal tonsillitis Epistaxis Social History Smoking Status: Never smoker alcohol intake: never current occupational status: student Travel in the last 8 weeks: None ROS Obtained: Yes All systems reviewed & no additional complaints except as documented Constitutional Constitutional: Reports chills and Reports fever(s) Eyes Eyes: Denies eye discharge ENT Ears, Nose, Mouth, and Throat: Reports as per HPI Cardiovascular Cardiovascular: Denies chest pain Respiratory Respiratory: Denies chest congestion and Reports cough Gastrointestinal Gastrointestingal: Reports nausea; Denies abdominal pain, constipation, cramping, diarrhea or vomiting Musculoskeletal Musculoskeletal: Denies arthralgias Integumentary/Breasts Skin/Breast: Denies rash Neurologic Neurologic: Denies paresthesias Physical Exam General General appearance: alert and in no apparent distress Head Head exam: atraumatic, normocephalic and normal inspection Eye Eye exam: Present normal appearance, PERRL and EOMI ENT ENT exam: Present normal exam, normal oropharynx, mucous membranes moist, TM's normal bilaterally and normal external ear exam Neck Neck exam: Present normal inspection, full ROM and trachea midline; Absent meningismus or lymphadenopathy Chest Chest inspection: Present normal inspection and symmetric chest wall rise; Absent tenderness Respiratory Respiratory exam: Present normal lung sounds bilaterally; Absent respiratory distress Cardiovascular Cardiovascular exam: Present regular rate and normal rhythm; Absent JVD Abdominal Exam Abdominal exam: Present soft and normal bowel sounds; Absent distention, tenderness or guarding Extremities Exam Extremities exam: Present normal inspection, full ROM and normal capillary refill; Absent calf tenderness Back Exam Back exam: Present normal inspection; Absent tenderness Neurological Exam Neurological exam: Present alert and oriented X3 Psychiatric Psychiatric exam: Present normal affect and normal mood Skin Skin exam: Present warm, dry, intact and normal color Lymphatic Lymphatic Findings: no adenopathy Medical Decision Making Medical Records Medical records reviewed: No I reviewed the patient's medical records. Miguel Inquiry Pt receiving controlled substance: No Lab Data Lab results reviewed: Yes I reviewed the patient's lab results.
[2023-03-24 10:24] VITALS: BP 135/69; PULSE 105; RESP 18; TEMP 36.8
[2023-03-24 19:15] LABS: UTC Strep Screen (Rapid) Negative (Negative)
[2023-03-24 19:16] LABS: UTC Influenza A Antigen Negative (Negative); UTC Influenza B Antigen Negative (Negative)
== END 2023-03-24 10:29 | disposition home or self-care (01) ==
PROVIDERS: Emergency Provider Nurse Practitioner Family; PCP Family Medicine
DX: J20.9 Acute bronchitis, unspecified (principal); R50.9 Fever, unspecified; R05.9 Cough, unspecified; R11.0 Nausea; R53.81 Other malaise; B34.9 Viral infection, unspecified
CPT/HCPCS: 87635; 87804; 87880; 99212; 99214; G0463

== ENCOUNTER 2023-03-29 19:39 | Emergency (ER) | payer OTHER, SELFPAY ==
[2023-03-29 20:10] VITALS: BP 135/86; PULSE 76; RESP 16; TEMP 36.8; O2SAT 97; BMI 28.3
--- NOTE | 2023-03-29 20:13 | XR_ITS ---
PROCEDURE INFORMATION: Exam: XR Chest Exam date and time: 03/29/2023 8:26 PM Age: 22 years old Clinical indication: Shortness of breath; Additional info: SOB, cough TECHNIQUE: Imaging protocol: Radiologic exam of the chest. Views: 1 view. COMPARISON: CR XR CHEST PORTABLE 10/25/2022 3:00 AM FINDINGS: Lungs: No consolidation. Probable calcified granuloma within LEFT lung base. Pleural spaces: No significant pleural effusion. No pneumothorax. Heart/Mediastinum: No cardiomegaly. Bones/joints: No displaced fracture. Soft tissues: Unremarkable. IMPRESSION: No definite acute cardiopulmonary disease.
--- NOTE | 2023-03-29 20:14 | ECG_ITS ---
APPROVED REPORT Exam: Resting ECG HR:71 bpm ECG Measurements Heart Rate 71 AXES IN 114 P 24 QRSd 82 QRS 80 QT 397 T 71 QTc 419 Conclusion SINUS RHYTHM WITH SINUS ARRHYTHMIA WITH SHORT IN INTERVAL MODERATE ST DEPRESSION [0.05+ mV ST DEPRESSION] ABNORMAL ECG UNCONFIRMED REPORT Electronically signed by : Mynor Pang MD 03/30/2023 14:31:51
--- NOTE | 2023-03-29 20:16 | ED_ITS ---
Discharge Plan Disposition Patient Disposition: Home, Self-Care Prescriptions Prescriptions: New ondansetron 4 mg tablet,disintegrating 4 mg PO Q8H PRN (Reason: nausea and vomiting) 4 Days Qty: 12 0RF No Action norgestimate-ethinyl estradiol [Tri-Lo-Kanwal] 0.18/0.215/0.25 mg-25 mcg tablet 1 tab PO DAILY Patient Comments: TAKE 1 TABLET BY MOUTH EVERY DAY azithromycin [Zithromax] 250 mg tablet 250 mg PO UD DOSE PK Qty: 6 0RF Rx Instructions: Take two (2) tablets today, then one (1) tablet days #2 thru #5 ovurretpqzwtywb-nevacqhjv-FT [Bromfed DM] 2-30-10 mg/5 mL Syrup 5 ml PO Q6H PRN (Reason: Cough) Qty: 240 0RF ondansetron 4 mg Tablet,Disintegrating 4 mg PO Q8H PRN (Reason: Nausea) Qty: 12 0RF sertraline 25 mg tablet 25 mg PO DAILY Patient Comments: TAKE 1 TABLET BY MOUTH EVERY DAY Referrals Follow up/Referrals: Efra James MD [Primary Care Provider] - See instructions Activity Restrictions/Add. Instructions Additional Instructions/Restrictions: At this time it was felt you are safe to be discharged home. If new or worsening symptoms please do not hesitate to return the emergency department. If symptoms persist please follow-up with your family doctor as you are able. Please take your medications as prescribed. Clinical Impressions Clinical Impression: Influenza A Instructions Patient Instructions: DI for Diarrhea and Traveler's Diarrhea -- Adult, DI for Diarrhea and Traveler's Diarrhea -- Child, DI for Nausea -- Adult, DI for Nausea -- Child Discharge ED Provider: Karlos Purcell General Adult HPI General Chief complaint: Nausea/Vomiting/Diarrhea Stated complaint: vomiting,nose is stopped up Time Seen by Provider: 03/29/23 20:00 Mode of Arrival: Ambulatory Source of Information: Patient Limitations: No Limitations Description of Symptoms (Recalled from ER Triage Doc. by RN): 22 yo female presents with CC of n/v/d that has been ongoing for a week. Reports being seen by [facility] provider on Friday and given zpack steroids, cough meds. Patient I haven't been keeping anything really in all week . Patient is exposed to patients in this facility. History of Present Illness HPI narrative: Patient is a 22-year-old female with no pertinent past medical history who presents to the emergency department for evaluation of breath, cough, vomiting, diarrhea. Onset was acute, over the last 7 days, vomiting diarrhea or nonbloody , last menstrual period just recently. Patient has intermittent substernal chest pain only when coughing, no persistent chest pain not coughing and not at rest. There is an associated sore throat. Patient was seen in urgent care on Friday and was discharged with steroids and azithromycin. Due to persistent symptoms she presents here for continued evaluation. Related Data Home Medications Medication Instructions Recorded Confirmed sertraline 25 mg tablet 25 mg PO DAILY 01/04/23 03/24/23 norgestimate 0.18 mg/0.215 mg/0.25 1 tab PO DAILY 01/29/23 03/24/23 mg-ethinyl estradiol 25 mcg tablet (Tri-Lo-Kanwal) Previous Rx's Medication Instructions Recorded azithromycin 250 mg tablet 250 mg PO UD DOSE PK #6 tabs 03/24/23 (Zithromax) dsugxxlgkgkflzf-mujudyrefwnihng-LT 5 ml PO Q6H PRN Cough #240 mL 03/24/23 2 mg-30 mg-10 mg/5 mL oral syrup (Bromfed DM) ondansetron 4 mg disintegrating 4 mg PO Q8H PRN Nausea #12 tabs 03/24/23 tablet ondansetron 4 mg disintegrating 4 mg PO Q8H PRN nausea and 03/29/23 tablet vomiting 4 days #12 tabs Allergies Allergy/AdvReac Type Severity Reaction Status Date / Time No Known Allergies Allergy Verified 03/24/23 09:52 [facility] Disclaimer: The information contained in this section may have been updated after the patient was seen, as this information can be updated by other users. 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) Chronic streptococcal tonsillitis Epistaxis Social History Smoking Status: Unknown if ever smoked alcohol intake: never current occupational status: student Travel in the last 8 weeks: None ROS Obtained: Yes Systems reviewed as appropriate & no additional complaints except as documented Physical Exam General General appearance: alert and in no apparent distress Head Head exam: atraumatic and normocephalic Eye Eye exam: Present PERRL ENT ENT exam: Present mucous membranes moist and other (Symmetrically enlarged bilateral pharyngeal tonsils, erythematous posterior oropharynx, uvula midline.) Neck Neck exam: Present normal inspection Chest Chest inspection: Present normal inspection and symmetric chest wall rise Respiratory Respiratory exam: Present normal lung sounds bilaterally; Absent respiratory distress Cardiovascular Cardiovascular exam: Present regular rate and normal rhythm Abdominal Exam Abdominal exam: Present soft; Absent tenderness Extremities Exam Extremities exam: Present normal inspection Neurological Exam Neurological exam: Present alert Psychiatric Psychiatric exam: Present normal affect Skin Skin exam: Present warm and dry Medical Decision Making Miguel Inquiry Pt receiving controlled substance: No Vital Signs: 03/29/23 20:10 Temperature 98.2 F Temperature Source Oral Pulse Rate [Right Brachial] 76 Respiratory Rate 16 Blood Pressure [Right Arm] 135/86 Blood Pressure Mean [Right Arm] 102 Blood Pressure Source [Right Arm] Automatic Cuff Blood Pressure Position [Right Arm] Sitting 02 Sat by Pulse Oximetry 97 Oxygen Delivery Method Room Air Lab Data Lab Results 03/29/23 20:13: SARS-CoV-2 (PCR) Not detected, Influenza A Untype (PCR) Detected A, Influenza Type B (PCR) Not detected 03/29/23 20:15: Group A Strep Rapid Negative 03/29/23 20:20: WBC 4.8, RBC 4.53, Hgb 14.0, Hct 40.3, MCV 89.0, MCH 31.0, MCHC 34.8, RDW 13.1, Plt Count 213, MPV 7.7, Neut % (Auto) 46.2, Lymph % (Auto) 44.2, [place] % (Auto) 5.8, Eos % (Auto) 3.0, Baso % (Auto) 0.7, Neut # (Auto) 2.2, Lymph # (Auto) 2.1, [place] # (Auto) 0.3, Eos # (Auto) 0.2, Baso # (Auto) 0.0, Sodium 139, Potassium 4.0, Chloride 105, Carbon Dioxide 26, Anion Gap 12.0, BUN 13, Creatinine 0.70, Estimated Creat Clear 138, Estimated GFR 107, Est GFR ( Amer) 129, Glucose 92, Calcium 9.3, Total Bilirubin 0.4, AST 28, ALT 22, Alkaline Phosphatase 55, Troponin I < 0.01, Total Protein 6.9, Albumin 4.1, Globulin 2.8, Albumin/Globulin Ratio 1.5, Serum HCG, Qual Negative 03/29/23 20:20 03/29/23 20:20 Orders (Tests/Meds): ED MEDICATIONS Discontinued Medications Generic Name Dose Route Start Last Admin Trade Name aV PRN Reason Stop Dose Admin Acetaminophen 1,000 mg 03/29/23 20:13 03/29/23 20:35 Acetaminophen 500mg Tab PO 03/29/23 20:14 1,000 mg ONCE ONE Administration Lactated Ringer's 1,000 mls @ 999 mls/hr 03/29/23 20:13 03/29/23 20:35 Lactated Ringer's 1000 Ml Bag IV 03/29/23 21:13 999 mls/hr .Q1H1M ONE Administration Ketorolac Tromethamine 30 mg 03/29/23 20:13 03/29/23 20:35 Ketorolac 30mg/Ml Vial IV 03/29/23 20:14 30 mg ONCE ONE Administration Ondansetron HCl 4 mg 03/29/23 20:13 03/29/23 20:34 Ondansetron 4mg/2ml Vial IV 03/29/23 20:14 4 mg ONCE ONE Administration ORDERS Category Date Time Status CXR --portable [XR chest portable] Stat Exams 03/29/23 20:13 Completed CBC w/Auto Diff [Complete Blood Count Auto Diff] Stat Lab 03/29/23 20:20 Completed CMP [Comprehensive Metabolic Panel] Stat Lab 03/29/23 20:20 Completed HCG Qualitative, Serum Stat Lab 03/29/23 20:20 Completed Rapid PCR Covid and Flu A/B Stat Lab 03/29/23 20:13 Completed Strep Scrn Group A (Rapid) Stat Lab 03/29/23 20:15 Completed Trop I [Troponin I] Stat Lab 03/29/23 20:20 Completed Troponin I Q3H Lab 03/29/23 23:15 Ordered Troponin I Q3H Lab 03/30/23 02:15 Ordered Strep Screen Confirmation Stat Micro 03/29/23 20:15 Received EKG Request [ECG Request] Stat Y 03/29/23 20:14 Ordered ECG Data Tracing #1: Independently interpreted by me, rate of 71, rhythm is irregular, sinus arrhythmia, no ST elevation in anatomical contiguous leads, QTc 419. Medical Decision Narrative: In summary patient is a 22-year-old female past medical history described above presents emergency department for evaluation of cough, chest pain, vomiting, diarrhea. Patient is hemodynamically stable nontoxic-appearing upon arrival, afebrile. Differential diagnosis includes strep pharyngitis, viral syndrome, pneumonia, ACS, among others. Workup will be conducted with hematologic labs, viral swab, chest x-ray, EKG, troponin. Initial inventions include crystalloid bolus, Tylenol, Toradol, Zofran. Initial workup reviewed by me, hematologic labs are nonactionable, initial troponin below detectable limit, test negative, group A strep negative. Patient is influenza A+, outside of treatment window. Patient underwent p.o. trial and was successful. Given this patient is appropriate for discharge at this time will be discharged with Zofran and was given return precautions. Critical Care Critical Care Time Critical Care Time: No
[2023-03-29 20:28] LABS: Coronavirus 19, PCR Not Detected (NotDetected); Influenza B, PCR Not Detected (NotDetected)
[2023-03-29 20:30] LABS: Basophils % 0.7 % (0.1-2.0); Eosinophils # 0.2 K/mm3 (0.0-0.4); Hematocrit 40.3 % (37.0-47.0); Lymphocytes # 2.1 K/mm3 (0.7-4.5); Lymphocytes % 44.2 % (10-50); Mean Corpuscular HGB Conc 34.8 g/dL (31.8-35.4); Mean Platelet Volume 7.7 fl (7.4-10.4); Monocytes # 0.3 K/mm3 (0.1-1.0); Monocytes % 5.8 % (1.7-9.3); Neutrophils # 2.2 K/mm3 (1.8-7.8); Neutrophils % 46.2 % (37.0-80.0); Platelet Count 213 K/mm3 (142-424); Red Blood Count 4.53 M/mm3 (4.20-5.40); Red Cell Distribution Width 13.1 % (11.5-17.5); White Blood Count 4.8 K/mm3 (4.5-13.0)
[2023-03-29 20:32] LABS: Chloride 105 mmol/L (98-107); Sodium 139 mmol/L (136-145)
[2023-03-29 20:34] LABS: Alanine Aminotransferase 22 U/L (12-78); Aspartate Amino Transferase 28 U/L (14-36); Blood Urea Nitrogen 13 mg/dl (7-17); Creatinine Clearance Estimated 138 mL/min (50-200); Estimated Glomerular Filt Rate 107 ml/min (>60); GFR (African American) 129 ML/MIN (>60)
[2023-03-29] MEDS: ONDANSETRON 4MG/2ML VIAL 4 MG IV (20:34)
[2023-03-29 20:35] LABS: Strep Scrn Group A (Rapid) Negative (Negative)
[2023-03-29 20:35] LABS: Albumin Level 4.1 g/dl (3.5-5.0); Albumin/Globulin Ratio 1.5 (1.1-1.8); Alkaline Phosphatase 55 U/L (38-126); Bilirubin,Total 0.4 mg/dl (0.2-1.3); Calcium 9.3 mg/dl (8.4-10.2); Carbon Dioxide 26 mmol/L (22.0-30.0); Globulin 2.8 g/dL (1.3-3.2); Glucose 92 mg/dl (74-100); Total Protein,Serum 6.9 g/dl (6.3-8.2)
[2023-03-29] MEDS: KETOROLAC 30MG/ML VIAL 30 MG IV (20:35)
[2023-03-29] MEDS: LACTATED RINGERS 1000ML 1,000 ML 999 ML IV (20:35)
[2023-03-29] MEDS: ACETAMINOPHEN 500MG TAB 1000 MG PO (20:35)
[2023-03-29 20:46] LABS: HCG Qualitative, Serum Negative (Negative)
[2023-03-29 20:48] LABS: Troponin I < 0.01 ng/ml (0.00-0.034)
[2023-03-29 21:18] LABS: Influenza A, PCR Detected (NotDetected)
[2023-03-29 21:39] VITALS: BP 134/80; PULSE 76; RESP 18; TEMP 36.8; O2SAT 99
== END 2023-03-29 21:42 | disposition home or self-care (01) ==
PROVIDERS: Emergency Provider Emergency Medicine; PCP Family Medicine
DX: J10.1 Influenza due to other identified influenza virus with other respiratory manifestations (principal); J10.2 Influenza due to other identified influenza virus with gastrointestinal manifestations; R07.9 Chest pain, unspecified; R05.9 Cough, unspecified; R11.2 Nausea with vomiting, unspecified; R19.7 Diarrhea, unspecified; R07.0 Pain in throat; I49.9 Cardiac arrhythmia, unspecified
CPT/HCPCS: 71045; 80053; 84484; 84703; 85025; 87430; 87636; 93005; 96361; 96374; 96375; 99285; J2405

== ENCOUNTER 2023-06-17 22:27 | Emergency (ER) | payer OTHER, SELFPAY ==
[2023-06-17 22:29] VITALS: BP 140/84; PULSE 83; RESP 20; TEMP 36.9; O2SAT 97; BMI 28.3
--- NOTE | 2023-06-17 22:44 | XR_ITS ---
PROCEDURE INFORMATION: Exam: XR Right Ankle Exam date and time: 06/17/2023 10:44 PM Age: 22 years old Clinical indication: Pain; Ankle; Right; Additional info: Fall, injury TECHNIQUE: Imaging protocol: Radiologic exam of the right ankle. Views: 3 or more views. COMPARISON: No relevant prior studies available. FINDINGS: Bones/joints: Normal. Soft tissues: Normal. IMPRESSION: No acute findings.
--- NOTE | 2023-06-17 22:44 | XR_ITS ---
PROCEDURE INFORMATION: Exam: XR Right Foot Exam date and time: 06/17/2023 10:46 PM Age: 22 years old Clinical indication: Pain; Foot; Right; Additional info: Fall, injury TECHNIQUE: Imaging protocol: Radiologic exam of the right foot. Views: 3 or more views. COMPARISON: CR Lower leg R 06/17/2023 10:45 PM FINDINGS: Bones/joints: Normal. Soft tissues: Normal. IMPRESSION: No acute findings.
--- NOTE | 2023-06-17 22:44 | XR_ITS ---
PROCEDURE INFORMATION: Exam: XR Right Tibia and Fibula Exam date and time: 06/17/2023 10:45 PM Age: 22 years old Clinical indication: Pain; Lower leg; Right; Additional info: Fall, injury TECHNIQUE: Imaging protocol: Radiologic exam of the right tibia and fibula. Views: 2 views. COMPARISON: CR XR ANKLE RT MIN 3V 06/17/2023 10:44 PM FINDINGS: Bones/joints: Normal. Soft tissues: Normal. IMPRESSION: No acute findings.
--- NOTE | 2023-06-17 22:50 | HMH.EDGENADL ---
Discharge Plan Disposition Patient Disposition: Home, Self-Care Prescriptions Prescriptions: No Action norgestimate-ethinyl estradiol [Tri-Lo-Kanwal] 0.18/0.215/0.25 mg-25 mcg tablet 1 tab PO DAILY Patient Comments: TAKE 1 TABLET BY MOUTH EVERY DAY azithromycin [Zithromax] 250 mg tablet 250 mg PO UD DOSE PK Qty: 6 0RF Rx Instructions: Take two (2) tablets today, then one (1) tablet days #2 thru #5 [id number]-skrvwgtse-KX [Bromfed DM] 2-30-10 mg/5 mL Syrup 5 ml PO Q6H PRN (Reason: Cough) Qty: 240 0RF ondansetron 4 mg Tablet,Disintegrating 4 mg PO Q8H PRN (Reason: Nausea) Qty: 12 0RF ondansetron 4 mg tablet,disintegrating 4 mg PO Q8H PRN (Reason: nausea and vomiting) 4 Days Qty: 12 0RF sertraline 25 mg tablet 25 mg PO DAILY Patient Comments: TAKE 1 TABLET BY MOUTH EVERY DAY Referrals Follow up/Referrals: Efra James MD [Primary Care Provider] - See instructions Activity Restrictions/Add. Instructions Additional Instructions/Restrictions: No evidence of any fracture or dislocation supportive care as discussed return with any significant worsening of your symptoms. Clinical Impressions Clinical Impression: Contusion of left lower leg, Ankle sprain, Contusion of foot Discharge ED Provider: Fernando Malhotra General Adult HPI General Chief complaint: Extremity Injury, Lower Stated complaint: AO04/30 fall- RT leg, anklepain Time Seen by Provider: 06/17/23 22:34 History of Present Illness HPI narrative: Patient is a 22-year-old female presenting today with right lower extremity pain after a fall. Several days ago she actually dropped her phone on the dorsal aspect of her foot and had subsequent bruising. However this not what brought her to the emergency department today. She was at college today and fell down some concrete stairs having a direct blow to her anterior newman and also her right leg bending underneath of her and feeling like she twisted her ankle. She has been able to ambulate since that time but has been antalgic in her gait. Denies any other significant injuries or past medical history. She has been taking Tylenol and ibuprofen intermittently throughout the day. She primarily came to the emergency department today because she felt like she was having low bit of swelling. Related Data Home Medications Medication Instructions Recorded Confirmed sertraline 25 mg tablet 25 mg PO DAILY 01/04/23 03/24/23 norgestimate 0.18 mg/0.215 mg/0.25 1 tab PO DAILY 01/29/23 03/24/23 mg-ethinyl estradiol 25 mcg tablet (Tri-Lo-Kanwal) Previous Rx's Medication Instructions Recorded azithromycin 250 mg tablet 250 mg PO UD DOSE PK #6 tabs 03/24/23 (Zithromax) xgjhsfubgswezzy-jhqknewqxxobsih-TX 5 ml PO Q6H PRN Cough #240 mL 03/24/23 2 mg-30 mg-10 mg/5 mL oral syrup (Bromfed DM) ondansetron 4 mg disintegrating 4 mg PO Q8H PRN Nausea #12 tabs 03/24/23 tablet ondansetron 4 mg disintegrating 4 mg PO Q8H PRN nausea and 03/29/23 tablet vomiting 4 days #12 tabs Allergies Allergy/AdvReac Type Severity Reaction Status Date / Time No Known Allergies Allergy Verified 03/24/23 09:52 [facility] Disclaimer: The information contained in this section may have been updated after the patient was seen, as this information can be updated by other users. 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) Chronic streptococcal tonsillitis Epistaxis Social History Smoking Status: Never smoker alcohol intake: never current occupational status: student Travel in the last 8 weeks: None ROS Obtained: Yes All systems reviewed & no additional complaints except as documented Physical Exam General General appearance: alert and in no apparent distress Respiratory Respiratory exam: Present normal lung sounds bilaterally Cardiovascular Cardiovascular exam: Present regular rate and normal rhythm Extremities Exam Extremities exam: Present other (Ecchymosis over the anterior tibia and the proximal location she also has pain with distal compression also has pain along the bilateral malleoli and dorsal aspect of the foot with ecchymosis neurovascularly she is normal) Neurological Exam Neurological exam: Present alert Medical Decision Making Miguel Inquiry Pt receiving controlled substance: No Vital Signs: 06/17/23 22:29 Temperature 98.4 F Temperature Source Oral Pulse Rate [Right Radial] 83 Respiratory Rate 20 Blood Pressure [Right Arm] 140/84 Blood Pressure Mean [Right Arm] 102 02 Sat by Pulse Oximetry 97 Oxygen Delivery Method Room Air Orders (Tests/Meds): ORDERS Category Date Time Status Ankle XR -Right minimum 3 Views [XR ankle RT min 3V] Exams 06/17/23 22:44 Taken Stat Fibula/tibia XR right 2 views [XR tibia fibula RT 2V] Exams 06/17/23 22:44 Taken Stat Foot XR right minimum 3 views [XR foot RT min 3V] Stat Exams 06/17/23 22:44 Taken Medical Decision Narrative: Patient is a 22-year-old female presenting today with blunt injury and twisting injury of her right lower extremity including her anterior newman ankle and foot. She has ecchymosis on the dorsal aspect of her lower leg and her foot most likely this is superficial musculoskeletal injury such as contusion and possibly a mild sprain of her ankle. Will get plain films to rule out fracture or dislocation supportive care will be discussed and she will be discharged in a stable condition if films are negative. Reassessment 11:03 PM x-rays performed of the tib-fib ankle and foot I personally interpreted them shows no fracture or dislocation. Supportive care emphasized and discussed she was discharged in a stable condition with return precautions emphasized Critical Care Critical Care Time Critical Care Time: No
[2023-06-17 23:14] VITALS: BP 140/84; PULSE 70; RESP 16; TEMP 36.8; O2SAT 96
== END 2023-06-17 23:16 | disposition home or self-care (01) ==
PROVIDERS: Emergency Provider Student in an Organized Health Care Education/Training Program; PCP Family Medicine
DX: S93.401A Sprain of unspecified ligament of right ankle, initial encounter (principal); S80.11XA Contusion of right lower leg, initial encounter; S90.31XA Contusion of right foot, initial encounter; W10.8XXA Fall (on) (from) other stairs and steps, initial encounter
CPT/HCPCS: 73590; 73610; 73630; 99283

== ENCOUNTER 2023-08-20 13:58 | Emergency (ER) | payer SELFPAY ==
[2023-08-20 14:05] VITALS: BP 137/86; PULSE 98; RESP 20; TEMP 36.6; O2SAT 100; BMI 29.2
[2023-08-20 14:19] LABS: UTC Strep Screen (Rapid) Negative (Negative)
--- NOTE | 2023-08-20 14:22 | EXP.UTC ---
Discharge Plan Disposition Patient Disposition: Home, Self-Care Condition: Good Prescriptions Prescriptions: New zsabjbdsypxszmm-rcnpyyrgf-SR [Bromfed DM] 2-30-10 mg/5 mL syrup 10 ml PO Q6H PRN (Reason: cold symptoms/cough) Qty: 200 0RF No Action norgestimate-ethinyl estradiol [Tri-Lo-Kanwal] 0.18/0.215/0.25 mg-25 mcg tablet 1 tab PO DAILY Patient Comments: TAKE 1 TABLET BY MOUTH EVERY DAY sertraline 25 mg tablet 25 mg PO DAILY Patient Comments: TAKE 1 TABLET BY MOUTH EVERY DAY Referrals Follow up/Referrals: Efra James MD [Primary Care Provider] - See instructions Activity Restrictions/Add. Instructions Additional Instructions/Restrictions: Take medication as prescribed. If symptoms persist or worsen, return to clinic or go to PCP. Clinical Impressions Clinical Impression: Acute upper respiratory infection Stand Alone Forms Stand Alone Forms: Work/School Release Instructions Patient Instructions: DI for Viral Upper Respiratory Infection -- Adult Discharge ED Provider: Liss Marie [facility] General Stated complaint: congestion, sore throat Mode of Arrival: Ambulatory Source of Information: Patient Limitations: No Limitations Time Seen by Provider: 08/20/23 14:15 Description of Symptoms (Recalled from Triage Doc. by RN): PATIENT C/O SORE THROAT, COUGH, LEFT EAR PAIN, AND PAIN TO CHEST WHEN BREATHING SINCE YESTERDAY HEENT Symptoms (Recalled from RN notes): Yes Resp Symptoms (Recalled from RN notes): Yes Skin Symptoms (Recalled from RN notes): No MS Symptoms (Recalled from RN notes): No Functional Status (Recalled from RN notes): WNL History of Present Illness Provider Complaint: Pt states that she has cough, sore throat, ear pain, and generalized malaise. She denies taking anything for her symptoms. She reports that mom had similar symptoms. Related Data Home Medications Medication Instructions Recorded Confirmed sertraline 25 mg tablet 25 mg PO DAILY 01/04/23 08/20/23 Previous Rx's Medication Instructions Recorded bfsyulzkxuoygel-knebodxvzxvbpvq-NX 10 ml PO Q6H PRN cold 08/20/23 2 mg-30 mg-10 mg/5 mL oral syrup symptoms/cough #200 mL (Bromfed DM) Allergies Allergy/AdvReac Type Severity Reaction Status Date / Time No Known Allergies Allergy Verified 03/24/23 09:52 Worker's Comp Is this a Worker's Comp case?: No [facility] Disclaimer: The information contained in this section may have been updated after the patient was seen, as this information can be updated by other users. 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 (Updated 08/20/23 @ 14:35 by Liss Marie APRN) Depression Anxiety Chronic streptococcal tonsillitis Epistaxis Social History Smoking Status: Never smoker alcohol intake: never current occupational status: student Travel in the last 8 weeks: None ROS Obtained: Yes All systems reviewed & no additional complaints except as documented Constitutional Constitutional: Reports system reviewed and no additional complaints, except as documented, Reports body ache and Reports malaise Eyes Eyes: Reports system reviewed and no additional complaints, except as documented ENT Ears, Nose, Mouth, and Throat: Reports system reviewed and no additional complaints, except as documented, Reports otalgia, Reports nasal congestion, Reports nasal discharge, Reports odynophagia, Reports post nasal drip and Reports sore throat Cardiovascular Cardiovascular: Reports system reviewed and no additional complaints, except as documented Respiratory Respiratory: Reports system reviewed and no additional complaints, except as documented, Reports cough, Reports pain with cough and Reports wheezing Gastrointestinal Gastrointestingal: Reports system reviewed and no additional complaints, except as documented and odynophagia Genitourinary Female Genitourinary: Reports system reviewed and no additional complaints, except as documented Musculoskeletal Musculoskeletal: Reports system reviewed and no additional complaints, except as documented Integumentary/Breasts Skin/Breast: Reports system reviewed and no additional complaints, except as documented Neurologic Neurologic: Reports system reviewed and no additional complaints, except as documented Endocrine Endocrine: Reports system reviewed and no additional complaints, except as documented Hematologic/Lymphatic Henatologic/Lymphatic: Reports system reviewed and no additional complaints, except as documented Allergic/Immunologic Allergic/Immunologic: Reports system reviewed and no additional complaints, except as documented and Reports wheezing Physical Exam General General appearance: alert Comment: ill appearing Head Head exam: atraumatic and normocephalic Eye Eye exam: Present normal appearance ENT ENT exam: Present mucous membranes moist Expanded ENT Exam External ear exam: Present normal external inspection TM/Canal exam: Bilateral TM: bulging and effusion Nasal speculum exam: Bilateral: other (clear drainage; edematous mucosa) Mouth exam: Present normal external inspection Teeth exam: Present normal inspection Throat exam: Present tonsillar erythema Neck Neck exam: Present normal inspection; Absent lymphadenopathy Chest Chest inspection: Present normal inspection and symmetric chest wall rise Respiratory Respiratory exam: Present normal lung sounds bilaterally Cardiovascular Cardiovascular exam: Present regular rate and normal rhythm Abdominal Exam Abdominal exam: Present soft and normal bowel sounds Extremities Exam Extremities exam: Present normal inspection Back Exam Back exam: Present normal inspection Neurological Exam Neurological exam: Present alert and oriented X3 Psychiatric Psychiatric exam: Present normal affect and normal mood Skin Skin exam: Present warm, dry and intact Lymphatic Lymphatic Findings: no adenopathy Medical Decision Making Miguel Inquiry Pt receiving controlled substance: No Miguel was queried for this patient: No Vital Signs: 08/20/23 14:05 Temperature 97.9 F Temperature Source Oral Pulse Rate [Left Brachial] 98 H Respiratory Rate 20 Blood Pressure [Left Arm] 137/86 Blood Pressure Mean [Left Arm] 103 Blood Pressure Source [Left Arm] Automatic Cuff Blood Pressure Position [Left Arm] Sitting 02 Sat by Pulse Oximetry 100 Oxygen Delivery Method Room Air Lab Data Lab results reviewed: Yes I reviewed the patient's lab results. Lab Results 08/20/23 14:09: Strep Scn Rapid Clinic Negative Orders (Tests/Meds): ORDERS Category Date Time Status Strep Screen Confirmation Stat Micro 08/20/23 14:09 Received
[2023-08-20 14:35] VITALS: BP 137/86; PULSE 98; RESP 20; TEMP 36.6; O2SAT 100
[2023-08-20 14:35] LABS: Coronavirus 19, PCR Not Detected (NotDetected); Influenza A, PCR Not Detected (NotDetected); Influenza B, PCR Not Detected (NotDetected)
--- NOTE | 2023-08-22 15:27 | PC.NURSE ---
Reviewed strep confirmation results which are negative. No further action is required.
== END 2023-08-20 14:37 | disposition home or self-care (01) ==
PROVIDERS: Emergency Provider Nurse Practitioner Family; PCP Family Medicine
DX: R05.9 Cough, unspecified (principal); H92.02 Otalgia, left ear; J06.9 Acute upper respiratory infection, unspecified
CPT/HCPCS: 87636; 87880; 99212; 99214; G0463

== ENCOUNTER 2024-03-15 07:31 | Emergency (ER) | payer OTHER, SELFPAY ==
[2024-03-15] VITALS (7 sets, daily range): BP systolic 103–132; BP diastolic 60–87; PULSE 64–101; RESP 15–16; TEMP 36.7–36.8; O2SAT 97–99; BMI 29.2
--- NOTE | 2024-03-15 07:53 | HMH.EDGENADL ---
Discharge Plan Disposition Patient Disposition: Home, Self-Care Condition: Good Prescriptions Prescriptions: New pantoprazole 40 mg tablet,delayed release (DR/EC) 40 mg PO DAILY Qty: 30 0RF ondansetron 4 mg tablet,disintegrating 4 mg PO Q8H PRN (Reason: nausea and vomiting) 4 Days Qty: 12 0RF No Action norgestimate-ethinyl estradiol [Sprintec (28)] 0.25-35 mg-mcg tablet 1 tab PO DAILY Qty: 84 0RF sertraline 25 mg tablet 25 mg PO DAILY Patient Comments: TAKE 1 TABLET BY MOUTH EVERY DAY Referrals Follow up/Referrals: Efra James MD [Primary Care Provider] - See instructions Activity Restrictions/Add. Instructions Additional Instructions/Restrictions: You were evaluated in the emergency department today. 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 You may also take Tylenol every 4-6 hours as needed for pain. Avoid regular NSAID use. Return to the emergency department for new or worsening symptoms. Follow-up closely with your primary care provider over the next 3 days for reassessment. Clinical Impressions Clinical Impression: Gastritis, Hematemesis, COVID-19 Stand Alone Forms Stand Alone Forms: Work/School Release Instructions Patient Instructions: DI for Gastritis, DI for Nausea -- Adult Print Language Print Language: French Discharge ED Provider: Bernice Ibrahim General Adult HPI General Chief complaint: Nausea/Vomiting/Diarrhea Stated complaint: blood in vomit, lung pain, lower back pain Time Seen by Provider: 03/15/24 07:37 Mode of Arrival: Ambulatory Source of Information: Patient Limitations: No Limitations Description of Symptoms (Recalled from ER Triage Doc. by RN): pt presents to ED with c/o blood in vomit this am. pt reports this happened this am around 5 am. pt reports lower back and lung pain as well. History of Present Illness HPI narrative: This patient is a 23-year-old female who denies significant past medical history presenting to the emergency department for evaluation of concern for nasal congestion, nausea, and vomiting. Her worry is that she had some blood in her vomit this morning. She states that she was a little bit nauseated yesterday and also dealing with congestion, but this morning at 5:00 in the morning she woke up feeling extremely nauseated and then had multiple episodes of emesis. She states she had bright red blood in her vomit, a little bit more than blood streaks. Vomit itself was yellow. She denies any localizable abdominal pain, changes in bowel movements, urinary symptoms, or other concerns. She denies any history of peptic ulcer disease, significant reflux, or significant NSAID use. Related Data Home Medications ?Medication ?Instructions ?Recorded ?Confirmed sertraline 25 mg tablet 25 mg PO DAILY 01/04/23 03/03/24 Previous Rx's ?Medication ?Instructions ?Recorded norgestimate 0.25 mg-ethinyl 1 tab PO DAILY #84 tabs 03/03/24 estradiol 35 mcg tablet (Sprintec (28)) ondansetron 4 mg disintegrating 4 mg PO Q8H PRN nausea and 03/15/24 tablet vomiting 4 days #12 tabs pantoprazole 40 mg tablet,delayed 40 mg PO DAILY #30 tabs 03/15/24 release Allergies Allergy/AdvReac Type Severity Reaction Status Date / Time No Known Allergies Allergy Verified 03/03/24 14:43 [facility] Disclaimer: The information contained in this section may have been updated after the patient was seen, as this information can be updated by other users. 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 Dysuria Acute right lower quadrant pain Dyspareunia Menorrhagia Dysmenorrhea Depression Anxiety Chronic streptococcal tonsillitis Epistaxis Surgical History No significant past surgical history Social History Smoking Status: Former smoker alcohol intake: never current occupational status: student Travel in the last 8 weeks: None Have you lived/traveled outside [place] in past 30 days?: No Contact w/someone who lives/traveled outside [place] past 30 days?: No Exposure to someone with infectious disease in past 14 days?: No Do you have a fever (greater than 100.4 F or 38 C)?: No Have you tested positive for COVID-19: No Exposed to someone with COVID-19 in past 14 days?: No Do you have a sore throat?: No Do you have a cough?: No Do you have any weakness?: No Do you have any diarrhea?: No Are you experiencing any unusual bleeding?: No Do you have any muscle aches/pain?: Yes Do you have any abdominal pain?: No Are you experiencing loss of taste or smell?: No ROS Obtained: Yes All systems reviewed & no additional complaints except as documented Physical Exam General General appearance: alert and in no apparent distress Head Head exam: atraumatic and normocephalic Eye Eye exam: Present normal appearance, PERRL and EOMI ENT ENT exam: Present normal exam, normal oropharynx, mucous membranes moist and normal external ear exam Neck Neck exam: Present normal inspection, full ROM and trachea midline; Absent tenderness Chest Chest inspection: Present normal inspection and symmetric chest wall rise; Absent tenderness Respiratory Respiratory exam: Present normal lung sounds bilaterally; Absent respiratory distress, wheezes, stridor or accessory muscle use Cardiovascular Cardiovascular exam: Present regular rate and normal rhythm Abdominal Exam Abdominal exam: Present soft; Absent distention, tenderness or guarding Extremities Exam Extremities exam: Present normal inspection, full ROM and normal capillary refill; Absent tenderness or edema Back Exam Back exam: Present normal inspection and full ROM; Absent tenderness Neurological Exam Neurological exam: Present alert, oriented X3, CN II-XII intact and normal gait; Absent motor sensory deficit Psychiatric Psychiatric exam: Present normal affect and normal mood Skin Skin exam: Present warm and dry Medical Decision Making Medical Records Medical records reviewed: Yes I reviewed the patient's medical records. Screening: Per USPSTF and CDC recommendations, given the prevalence of disease in our region, it is our hospital?s policy to screen for HIV and viral Hepatitis for all patients aged 18 and over and those with ongoing risk factors. Miguel Inquiry Pt receiving controlled substance: No Vital Signs: 03/15/24 07:33 03/15/24 07:45 03/15/24 08:00 Temperature 98.2 F Temperature Source Oral Pulse Rate 94 H 101 H Pulse Rate [Left Radial] 99 H Respiratory Rate 15 Blood Pressure 117/68 Blood Pressure [Right Arm] 132/87 Blood Pressure Mean [Right Arm] 102 02 Sat by Pulse Oximetry 98 99 98 Oxygen Delivery Method Room Air Room Air 03/15/24 08:30 03/15/24 09:00 03/15/24 09:30 Temperature Temperature Source Pulse Rate 84 64 95 H Pulse Rate [Left Radial] Respiratory Rate Blood Pressure 119/69 105/60 L 103/63 L Blood Pressure [Right Arm] Blood Pressure Mean [Right Arm] 02 Sat by Pulse Oximetry 98 97 97 Oxygen Delivery Method Room Air Room Air Room Air 03/15/24 10:25 Temperature 98.0 F Temperature Source Pulse Rate 95 H Pulse Rate [Left Radial] Respiratory Rate 16 Blood Pressure 103/63 L Blood Pressure [Right Arm] Blood Pressure Mean [Right Arm] 02 Sat by Pulse Oximetry Oxygen Delivery Method Lab Data Lab results reviewed: Yes I reviewed the patient's lab results. Lab Results 03/15/24 07:38: WBC 7.9, RBC 3.96 L, Hgb 12.0 L, Hct 35.3 L, MCV 89.1, MCH 30.3, MCHC 34.0, RDW 12.2, Plt Count 195, MPV 9.3, Neut % (Auto) 85.6 H, Lymph % (Auto) 6.9 L, Sumner % (Auto) 5.5, Eos % (Auto) 1.1, Baso % (Auto) 0.6, Neut # (Auto) 6.8, Lymph # (Auto) 0.6 L, Sumner # (Auto) 0.4, Eos # (Auto) 0.1, Baso # (Auto) 0.1, Sodium 140, Potassium 4.0, Chloride 108 H, Carbon Dioxide 25, Anion Gap 11.0, BUN 11, Creatinine 0.60, Estimated Creat Clear 170, Estimated GFR 126, Est GFR ( Amer) 153, Glucose 93, Calcium 9.1, Total Bilirubin 0.8, AST 25, ALT 21, Alkaline Phosphatase 48, Total Protein 6.6, Albumin 4.3, Globulin 2.3, Albumin/Globulin Ratio 1.9 H, Lipase 33, Serum HCG, Qual Negative, HCV Ab BARBARA w/Rflx PCR Qn Negative, HIV Ag/Ab Combo Qual Negative 03/15/24 07:59: SARS-CoV-2 (PCR) Detected A, Influenza A Untype (PCR) Not detected, Influenza Type B (PCR) Not detected 03/15/24 09:35: Urine Color Yellow, Urine Appearance Clear, Urine pH 6.0, Ur Specific Coats 1.010, Urine Protein Negative, Urine Glucose (UA) Negative, Urine Ketones Negative, Urine Blood 3+ A, Urine Nitrate Negative, Urine Bilirubin Negative, Urine Urobilinogen 0.2, Ur Leukocyte Esterase Negative, Urine RBC 3-5, Urine WBC None, Ur Squamous Epith Cells Occasional, Urine Bacteria Trace 03/15/24 07:38 03/15/24 07:38 Orders (Tests/Meds): ED MEDICATIONS Discontinued Medications Generic Name Dose Route Start Last Admin Trade Name Va PRN Reason Stop Dose Admin Acetaminophen 1,000 mg 03/15/24 07:52 03/15/24 08:04 Acetaminophen 1,000mg/100ml Vial IV 03/15/24 07:53 1,000 mg ONCE ONE Administration Lactated Ringer's 1,000 mls @ 999 mls/hr 03/15/24 07:52 03/15/24 08:04 Lactated Ringer's 1000 Ml Bag IV 03/15/24 08:52 999 mls/hr .Q1H1M ONE Administration Metoclopramide HCl 10 mg 03/15/24 09:08 03/15/24 09:18 Metoclopramide Hcl 10mg/2ml Vial IVP 03/15/24 09:09 10 mg ONCE ONE Administration Ondansetron HCl 4 mg 03/15/24 07:52 03/15/24 08:04 Ondansetron 4mg/2ml Vial IV 03/15/24 07:53 4 mg ONCE ONE Administration Pantoprazole Sodium 40 mg 03/15/24 07:52 03/15/24 08:04 Pantoprazole 40mg Vial IV 03/15/24 07:53 40 mg ONCE ONE Administration Sodium Chloride 10 ml 03/15/24 07:52 Sodium Chloride 0.9% 10ml Vial IV 04/14/24 07:51 NEEDED PRN dilute protonix ORDERS Category Date Time Status Complete Blood Count Auto Diff Stat Lab 03/15/24 07:38 Completed Comprehensive Metabolic Panel Stat Lab 03/15/24 07:38 Completed HIV Combo Stat Lab 03/15/24 07:38 Completed Hepatitis C Ab Qual. W/ RFX Stat Lab 03/15/24 07:38 Completed Lipase Stat Lab 03/15/24 07:38 Completed Rapid PCR Covid and Flu A/B Stat Lab 03/15/24 07:59 Completed Serum [HCG Qualitative, Serum] Stat Lab 03/15/24 07:38 Completed UA [Urinalysis and Microscopic] Stat Lab 03/15/24 09:35 Completed Medical Decision Narrative: In summary, this patient is a 23-year-old female presenting to the Emergency Department for evaluation of congestion, nausea, vomiting, and blood streaks in emesis. Differential diagnoses considered include but are not limited to epistaxis, viral syndrome, esophagitis, gastritis, gastroenteritis, peptic ulcer disease. Ruling out the most morbid conditions drove assessment. On exam, the patient is well-appearing. She has benign abdominal exam. Vitals are reassuring on cardiac telemetry. Workup included CBC, CMP, lipase, test, viral swab. She was given a bolus of IV fluids as well as IV pantoprazole, Zofran, acetaminophen for symptomatic improvement. Labs obtained demonstrated reassuring CBC with no significant anemia, no significant leukocytosis. BUN is not significantly elevated on chemistry, and chemistry is overall very reassuring with negative lipase, reassuring liver enzymes, normal kidney function. She does have some hematuria, however she is currently on her period. She did test positive for COVID-19, which I feel is likely the trigger of most of her symptoms. She is feeling better on reassessment with no recurrence of vomiting here in the emergency department and is able to tolerate oral intake without difficulty. Abdominal exam is benign. Her Glascow Blatchford score with regards to GI bleed indicates she is low risk. Given this, I feel that she is appropriate for discharge home with PPI, Zofran, instructions for supportive management, and strict return precautions. The patient was discharged after all questions were answered. Critical Care Critical Care Time Critical Care Time: No
[2024-03-15 08:04] LABS: Influenza A, PCR Not Detected (NotDetected); Influenza B, PCR Not Detected (NotDetected)
[2024-03-15] MEDS: ONDANSETRON 4MG/2ML VIAL 4 MG IV (08:04)
[2024-03-15] MEDS: PANTOPRAZOLE 40MG VIAL 40 MG IV (08:04)
[2024-03-15] MEDS: ACETAMINOPHEN 1,000MG/100ML VIAL 1000 MG IV (08:04)
[2024-03-15] MEDS: LACTATED RINGERS 1000ML 1,000 ML 999 ML IV (08:04)
[2024-03-15 08:21] LABS: Basophils # 0.1 K/mm3 (0-0.2); Basophils % 0.6 % (0.1-2.0); Eosinophils # 0.1 K/mm3 (0.0-0.4); Eosinophils % 1.1 % (0.1-12.0); Hematocrit 35.3 % (37.0-47.0); Lymphocytes # 0.6 K/mm3 (0.7-4.5); Lymphocytes % 6.9 % (10-50); Mean Corpuscular Hemoglobin 30.3 pg (27.0-31.2); Mean Corpuscular Volume 89.1 fl (81-99); Mean Platelet Volume 9.3 fl (7.4-10.4); Monocytes # 0.4 K/mm3 (0.1-1.0); Monocytes % 5.5 % (1.7-9.3); Neutrophils # 6.8 K/mm3 (1.8-7.8); Neutrophils % 85.6 % (37.0-80.0); Platelet Count 195 K/mm3 (142-424); Red Blood Count 3.96 M/mm3 (4.20-5.40); Red Cell Distribution Width 12.2 % (11.5-17.5); White Blood Count 7.9 K/mm3 (4.8-10.8)
[2024-03-15 08:25] LABS: Albumin Level 4.3 g/dl (3.5-5.0); Chloride 108 mmol/L (98-107); Sodium 140 mmol/L (136-145)
[2024-03-15 08:28] LABS: Alanine Aminotransferase 21 U/L (12-78); Albumin/Globulin Ratio 1.9 (1.1-1.8); Alkaline Phosphatase 48 U/L (38-126); Aspartate Amino Transferase 25 U/L (14-36); Bilirubin,Total 0.8 mg/dl (0.2-1.3); Blood Urea Nitrogen 11 mg/dl (7-17); Calcium 9.1 mg/dl (8.4-10.2); Carbon Dioxide 25 mmol/L (22.0-30.0); Creatinine Clearance Estimated 170 mL/min (50-200); Estimated Glomerular Filt Rate 126 ml/min (>60); GFR (African American) 153 ML/MIN (>60); Globulin 2.3 g/dL (1.3-3.2); Glucose 93 mg/dl (74-100); Lipase 33 U/L (23-300); Total Protein,Serum 6.6 g/dl (6.3-8.2)
[2024-03-15 08:36] LABS: Coronavirus 19, PCR Detected (NotDetected)
[2024-03-15] MEDS: METOCLOPRAMIDE HCL 10MG/2ML VIAL 10 MG IVP (09:18)
[2024-03-15 09:32] LABS: HCG Qualitative, Serum Negative (Negative)
[2024-03-15 09:37] LABS: Microscopic, Urine URINE MICROSCOPIC (MICROSCOPIC)
[2024-03-15 09:46] LABS: Appearance,Urine CLEAR (Clear); Bilirubin,Urine Negative (Negative); Blood, Urine 3+ (Negative); Color,Urine YELLOW (Yellow); Glucose,Urine (UA) Negative (Negative); Ketones,Urine Negative (Negative); Leukocyte Esterase,Urine Negative (Negative); Nitrate,Urine Negative (Negative); Protein,Urine Negative (Negative); Urobilinogen,Urine 0.2 EU/dl (0.2)
[2024-03-15 10:08] LABS: Bacteria,Urine Trace /lpf; Squamous Epithelial Cell,Urine Occasional #/hpf (0-5)
[2024-03-15 10:16] LABS: HIV Combo NEGATIVE (Negative)
[2024-03-15 10:19] LABS: Hepatitis C Ab Qual. W/ RFX NEGATIVE (Negative)
== END 2024-03-15 10:25 | disposition home or self-care (01) ==
PROVIDERS: Emergency Provider Emergency Medicine; PCP Family Medicine
DX: U07.1 COVID-19 (principal); K29.70 Gastritis, unspecified, without bleeding; K92.0 Hematemesis; M54.50 Low back pain, unspecified; R09.81 Nasal congestion
CPT/HCPCS: 80053; 81001; 83690; 84703; 85025; 86803; 87389; 87636; 96361; 96374; 96375; 99283; J0131; J2405; J2765; J7120